=== PATIENT | female | born 1975 | race Caucasian/White ===

== ENCOUNTER → 2019-07-07 11:21 | Outpatient (REF) | payer OTHER, SELFPAY | LOC: ANHLAB 11:21 | PROVIDERS: PCP Physician Assistant; Visit Provider Nurse Practitioner | DX: C44.622 Squamous cell carcinoma of skin of right upper limb, including shoulder (principal) | CPT/HCPCS: 88305; 88331 ==

== ENCOUNTER 2020-08-27 09:11 | Outpatient (CLI) | payer OTHER, SELFPAY ==
--- NOTE | 2020-08-27 | EST_ITS ---
Patient Info Name: Afshan Hill Age: 45 years : 1975 Gender: Female Ht: 68 in Wt: 190 lbs BSA: 2.05 m2 HR: 84 bpm BP: 106 / 66 mmHg Heart Rhythm: Sinus Rhythm Exam Date: 08/27/2020 9:28 AM Exam Location: [facility] Patient Status: Outpatient Admit Date: 08/27/2020 Staff Ordering Physician: VanessaMeghna PA-C Store Keeper: Huong Mathews RDCS Attending Provider: CornelioMeghna PA-C Exercise Technologist: Alena Do RDCS Exercise Physician: Yash Mercedes DO Exam Type: CA stress echo Study Info Indications R07.9 - Chest pain, unspecified Treadmill exercise stress echocardiogram is performed. Summary 1. 1. Negative Trino exercise stress test for ischemic ST changes by ECG criteria. 2. 2. Good functional capacity, achieving 10 METs of workload. 3. 3. Appropriate HR response to exercise. 4. 4. Appropriate HR recovery at 1 minute post exercise. 5. 5. Negative stress echocardiogram for ischemia by wall motion analysis. 6. 6. Patient informed of the above results. Stress Echo Findings Left Ventricle Appropriate increase in LV endocardial thickening with systole. Appropriate augmentation of contractility with systole. No wall motion abnormality. Left Ventricle Normal LV systolic function, no wall motion abnormality. Protocol: Trino Stress ECG Details Stage: REST Duration (min): 2 min : 10 sec Speed (mph): 0.0 Grade (%): 0 HR (bpm): 89 SBP (mmHg): 106 DBP (mmHg): 66 METS: --- Stage: REST Duration (min): 23 min : 16 sec Speed (mph): 0.0 Grade (%): 0 HR (bpm): 73 SBP (mmHg): 106 DBP (mmHg): 66 METS: --- Stage: STAGE 1 Duration (min): 1 min : 0 sec Speed (mph): 1.7 Grade (%): 10 HR (bpm): 110 SBP (mmHg): 106 DBP (mmHg): 66 METS: --- Stage: STAGE 1 Duration (min): 2 min : 0 sec Speed (mph): 1.7 Grade (%): 10 HR (bpm): 117 SBP (mmHg): 106 DBP (mmHg): 66 METS: --- Stage: STAGE 1 Duration (min): 3 min : 0 sec Speed (mph): 1.7 Grade (%): 10 HR (bpm): 122 SBP (mmHg): 127 DBP (mmHg): 65 METS: --- Stage: STAGE 2 Duration (min): 1 min : 0 sec Speed (mph): 2.5 Grade (%): 12 HR (bpm): 128 SBP (mmHg): 127 DBP (mmHg): 65 METS: --- Stage: STAGE 2 Duration (min): 2 min : 0 sec Speed (mph): 2.5 Grade (%): 12 HR (bpm): 132 SBP (mmHg): 122 DBP (mmHg): 71 METS: --- Stage: STAGE 2 Duration (min): 3 min : 0 sec Speed (mph): 2.5 Grade (%): 12 HR (bpm): 140 SBP (mmHg): 122 DBP (mmHg): 71 METS: --- Stage: STAGE 3 Duration (min): 1 min : 0 sec Speed (mph): 3.4 Grade (%): 14 HR (bpm): 150 SBP (mmHg): 146 DBP (mmHg): 67 METS: --- Stage: STAGE 3 Duration (min): 2 min : 0 sec Speed (mph): 3.4 Grade (%): 14 HR (bpm): 154 SBP (mmHg): 146 DBP (mmHg): 67 METS: --- Stage: STAGE 3 Duration (min): 3 min : 0
== END 2020-08-27 09:12 | disposition home or self-care (01) ==
PROVIDERS: PCP Physician Assistant; Visit Provider Physician Assistant
DX: R07.89 Other chest pain (principal)
CPT/HCPCS: 93351

== ENCOUNTER 2021-03-25 09:22 | Outpatient (CLI) | payer OTHER, SELFPAY ==
--- NOTE | ~2021-03-25 | MM_ITS ---
EXAMINATION: MM screening jose BI w ade HISTORY: Screening mammogram TECHNIQUE: Craniocaudal and mediolateral oblique 3-D tomosynthesis images were obtained and synthetic 2-D images were generated. CAD analysis was submitted and interpreted. COMPARISON: No prior mammogram is available for comparison at this institution. BREAST PARENCHYMAL COMPOSITION: The breasts are extremely dense, which lowers the sensitivity of mamm ography. FINDINGS: There is no evidence of suspicious mass, calcification, or architectural distortion to sugg est malignancy in either breast. There has been no suspicious interval change. IMPRESSION: 1. No mammographic evidence of malignancy. 2. Recommend routine screening mammography in one year. BI-RADS Category 1: Negative Reviewed, dictated and finalized at location A.
== END 2021-03-25 09:23 | disposition home or self-care (01) ==
LOC: ANHIMG 09:25
PROVIDERS: PCP Physician Assistant; Visit Provider Obstetrics & Gynecology
DX: Z12.31 Encounter for screening mammogram for malignant neoplasm of breast (principal)
CPT/HCPCS: 77063; 77067

== ENCOUNTER 2021-12-01 00:51 | Day surgery (SDC) | payer OTHER, SELFPAY ==
[2021-11-25 15:22] VITALS: BMI 28.1
--- NOTE | 2021-11-29 12:51 | PM.HPGS ---
History of Present Illness History of Present Illness Consent: Risks, benefits, and alternatives have been discussed and questions answered. Patient agrees to proceed with procedure. Chief complaint: neoplasm screening Narrative: Afshan Hill is a 46 year old female referred for colon cancer screening. Review of Systems Review of Systems: All systems reviewed & are unremarkable except as noted in HPI and below PMFSH Past Medical History Medical History History of Mohs micrographic surgery for skin cancer SCC (squamous cell carcinoma) Seizure Surgical History Surgical History History of brain surgery History of hernia repair Family History Family History Father Lymphoma Other Family history of malignant neoplasm Social History Social History Smoking status: Never smoker Alcohol intake: never Substance use: never Substance use type: does not use Living arrangements: with family Spiritual care concerns: No Meds Home Medications and Allergies Home Medications Medication Instructions Recorded Confirmed Type Pre-Biotic Pro-Biotic 1 cap PO DAILY 11/25/21 11/25/21 History cholecalciferol (vitamin D3) 25 25 mcg PO DAILY 11/25/21 11/25/21 History mcg (1,000 unit) tablet (Vitamin D3) levocetirizine 5 mg tablet (Xyzal) 5 mg PO DAILY 11/25/21 11/25/21 History multivit with minerals-iron 18 1 tablet PO DAILY 11/25/21 11/25/21 History mg-folic ac 400 mcg-vit K 25 mcg tablet (Adults Multivitamin) Allergies Allergy/AdvReac Type Severity Reaction Status Date / Time No Known Allergies Allergy Verified 12/01/21 08:55 Exam Resp: Auscultation: clear to auscultation bilaterally Cardio: Rate: regular rate Rhythm: regular rhythm GI: GI Palp: Yes Soft to palpation and No Tenderness to palpation present (GI) Assessment and Plan Assessment and plan (1) Colon cancer screening: Code(s): Z12.11 - Encounter for screening for malignant neoplasm of colon Status: Acute Assessment and Plan: Colonoscopy with possible biopsy or polypectomy or cautery or injection of substances.
[2021-12-01 08:55] VITALS: BP 117/84; PULSE 83; RESP 18; TEMP 36.6; O2SAT 99
[2021-12-01] MEDS: LACTATED RINGERS 1,000 ML 150 ML IV CONT (08:59)
--- NOTE | 2021-12-01 09:24 | P.PNAN_ITS ---
Anes - Initial Pre Proc Eval Procedure: Operation Date: 12/01/21 10:00 Proposed Procedures p Screening Colonoscopy - Clint Choi MD Date/Time: 12/01/21 09:24 Surgeon: Clint Choi MD Pre Op Diagnosis: neoplasm screening Patient Data Age: 46 Gender: F Height: 1.73 m Weight: 79.7 kg Last Vital Signs Temp 36.6 C 12/01/21 08:55 Pulse 83 12/01/21 08:55 Resp 18 12/01/21 08:55 BP 117/84 12/01/21 08:55 Pulse Ox 99 12/01/21 08:55 O2 Del Method Room Air 12/01/21 08:55 Allergies Allergy/AdvReac Type Severity Reaction Status Date / Time No Known Allergies Allergy Verified 12/01/21 08:55 Home Medications Medication Instructions Recorded Confirmed Type Pre-Biotic Pro-Biotic 1 cap PO DAILY 11/25/21 11/25/21 History cholecalciferol (vitamin D3) 25 25 mcg PO DAILY 11/25/21 11/25/21 History mcg (1,000 unit) tablet (Vitamin D3) levocetirizine 5 mg tablet (Xyzal) 5 mg PO DAILY 11/25/21 11/25/21 History multivit with minerals-iron 18 1 tablet PO DAILY 11/25/21 11/25/21 History mg-folic ac 400 mcg-vit K 25 mcg tablet (Adults Multivitamin) Patient hx anesthesia problems: none Family hx anesthesia problems: none Results Review: All pre-operative results and documents have been reviewed as part of the pre- operative evaluation. [facility] Past Medical History Medical History History of Mohs micrographic surgery for skin cancer SCC (squamous cell carcinoma) Seizure Surgical History Surgical History History of brain surgery History of hernia repair Family History Family History Father Lymphoma Other Family history of malignant neoplasm Social History Social History Smoking status: Never smoker Alcohol intake: never Substance use: never Substance use type: does not use Living arrangements: with family Spiritual care concerns: No Anes - Eval Final PreProcedure Day of Procedure 12/01/21 09:24 Patient weight: overweight Heart: regular rate and rhythm Lungs: clear to auscultation Airway: Mallampati scale class II Neurological: alert and oriented Last oral intake: >/= 8 hours ASA classification: III Emergent: no Anesthetic plan: proceed Anesthesia type and monitoring: general GIVS and standard monitoring Results Review: All pre-operative results and documents have been reviewed as part of the pre- operative evaluation. Informed Consent: The patient's anesthetic plan and its attendant risks and benefits were discussed with the patient/family/POA. Questions were solicited and answers provided to the satisfaction of the patient/family/POA.
[2021-12-01 10:01] VITALS: BP 110/60; PULSE 79; RESP 16; O2SAT 98
[2021-12-01 10:11] VITALS: BP 94/55; PULSE 71; RESP 14; O2SAT 98
[2021-12-01 10:21] VITALS: BP 108/67; PULSE 68; RESP 17; O2SAT 97
== END 2021-12-01 10:41 | disposition home or self-care (01) ==
PROVIDERS: PCP Physician Assistant; Visit Provider Internal Medicine Gastroenterology
PROC: 0DJD8ZZ Inspection of Lower Intestinal Tract, Via Natural or Artificial Opening Endoscopic (ICD-10-PCS; CPT 45378; principal; 2021-12-01 10:00)
DX: Z12.11 Encounter for screening for malignant neoplasm of colon (principal); R56.9 Unspecified convulsions; Z85.828 Personal history of other malignant neoplasm of skin
CPT/HCPCS: 45378; J2704; J7120

== ENCOUNTER → 2022-03-04 10:38 | Outpatient (CLI) | payer OTHER, SELFPAY ==
--- NOTE | ~2022-03-04 | XR_ITS ---
EXAM: XR foot LT min 3V DATE: 03/04/2022 10:54 HISTORY: Unspecified injury of left foot, initial encounter . COMPARISON: None available. FINDINGS: Normal mineralization. No fracture or dislocation. No lytic or blastic lesion. Small os na vicularis. Linear calcific density projecting medial to the first metatarsal head, possibly within pl anurag soft tissues, seen only in one view. Tiny ossific or calcific density adjacent to the cuboid, s een only in one view. Os cuboidium. Joint spaces are maintained. No erosion or periosteal change. Sof t tissues within normal limits. IMPRESSION: No definite acute osseous finding in the left foot. Possible plantar soft tissue calcific ation or foreign body at the level of the first metatarsal head. Small calcific/ossific fragment vandana cent to the lateral aspect of the cuboid. These findings are most likely artifactual/incidental unles s accompanied by acute pain/point tenderness. Reviewed, dictated and finalized at location K. IMPRESSION: No definite acute osseous finding in the left foot. Possible planta r soft tissue calcification or foreign body at the level of the first metatarsa l head. Small calcific/ossific fragment adjacent to the lateral aspect of the c uboid. These findings are most likely artifactual/incidental unless accompanied by acute pain/point tenderness.
== END ==
PROVIDERS: PCP Physician Assistant; Visit Provider Physician Assistant
DX: S99.922A Unspecified injury of left foot, initial encounter (principal)
CPT/HCPCS: 73630

== ENCOUNTER 2022-03-24 12:34 | Emergency (ER) | payer OTHER, SELFPAY ==
--- NOTE | ~2022-03-24 | US_ITS ---
EXAMINATION: US pelvic complete w TV DATE: 03/24/2022 17:03 INDICATION: Vaginal bleeding. TECHNIQUE: Multiple transabdominal and transvaginal sonographic images of the pelvis were obtained. COMPARISON: CT abdomen and pelvis 03/24/1972 FINDINGS: TRANSABDOMINAL ULTRASOUND: The uterus measures 10.8 x 5.7 x 7.2 cm. There is physiologic free fluid in the pelvis. TRANSVAGINAL ULTRASOUND: The endometrial complex measures 15 mm in thickness. The endocervical canal measures 19 mm in thickne ss and contains material of mixed echogenicity that is contiguous with the endometrial complex. The r ight ovary measures 3.3 x 1.9 x 2.4 cm. The left ovary is not visualized. IMPRESSION: 1. Hematoma in the endometrial complex and endocervical canal. Reviewed, dictated and finalized at location A.
--- NOTE | ~2022-03-24 | CT_ITS ---
EXAMINATION: CT abdomen pelvis w con DATE: 03/24/2022 15:43 INDICATION: Lower abdominal pain TECHNIQUE: Computed tomography (CT) of the abdomen and pelvis was performed with 100 mL Omnipaque-350 intravenous contrast. Automated exposure control and iterative reconstruction technique were employe d. The dose-length product was 728.14 mGy-cm. COMPARISON: None FINDINGS: Lung bases are clear. Heart size is normal. No pericardial or pleural effusion. 1.1 cm cyst at the do me of the liver. Gallbladder is dilated to 4.3 cm both no evident wall thickening or pericholecystic inflammatory stranding. Spleen, pancreas, bilateral adrenal glands and kidneys are normal. Bowels inc luding the appendix are normal. Bladder and bilateral ovaries are unremarkable. Normal 4 mm thick hyp odense endometrial complex at the fundus of the retroverted uterus. There is dilation of the more dis elliott endocervical canal which measures approximately 2.6 cm in diameter. Small amount of likely physio logic free fluid in the cul-de-sac. No pathologically enlarged abdominal or pelvic lymphadenopathy. I rregular sclerotic lesions at the right sacral ala and right supra-acetabular region and right pubic body. IMPRESSION: 1. Prominent dilation of the endocervical canal which measures up to 2.6 cm diameter region of indete rminate etiology but which does raise concern for cervical stenosis including the setting of cervical cancer. Recommend further evaluation with pelvic exam for direct visualization and could also consid er pelvic ultrasound. 2. A few indeterminate sclerotic bone lesions in the pelvis. Differential would include bone islands, enchondromas, bone infarcts or metastatic disease. Prior imaging is available to document chronicity would recommend bone scan for further evaluation. Reviewed, dictated and finalized at location A. IMPRESSION: 1. Prominent dilation of the endocervical canal which measures up to 2.6 cm wood meter region of indeterminate etiology but which does raise concern for cervica l stenosis including the setting of cervical cancer. Recommend further evaluati on with pelvic exam for direct visualization and could also consider pelvic ult rasound. 2. A few indeterminate sclerotic bone lesions in the pelvis. Differential would include bone islands, enchondromas, bone infarcts or metastatic disease. Prior imaging is available to document chronicity would recommend bone scan for furt her evaluation.
[2022-03-24 12:35] VITALS: BP 115/63; PULSE 74; TEMP 36.9; O2SAT 100
[2022-03-24] MEDS: SODIUM CHLORIDE 0.9% IV 1,000 ML 999 ML IV CONT (13:28)
[2022-03-24] MEDS: MORPHINE SULFATE (*CRX) 4 MG/ML INJ IV PUSH (13:28)
[2022-03-24] MEDS: ONDANSETRON INJ 4 MG/2 ML VIAL IV PUSH (13:28)
--- NOTE | 2022-03-24 13:28 | ED.ABDPAIN ---
HPI - Abdominal Pain General Chief Complaint: Abdominal Pain Stated Complaint: uterine cramps Time Seen by Provider: 03/24/22 13:00 History of Present Illness HPI narrative: 46-year-old female who is presently on her menses presents to the emergency room for evaluation of uterine cramps. Patient states prior to Arrival she began experiencing severe abdominal cramps, so she took 3 aspirins. Pain was not relieved, so she took a 3 ibuprofen 6. On presentation to the ER patient states the pain has slightly improved. Patient reports she has been experiencing abnormal vaginal bleeding and cramping for several months, and her [employer] recently started her on oral control. Related Data Home Medications Medication Instructions Recorded Confirmed Pre-Biotic Pro-Biotic 1 cap PO DAILY 11/25/21 11/25/21 cholecalciferol (vitamin D3) 25 25 mcg PO DAILY 11/25/21 11/25/21 mcg (1,000 unit) tablet (Vitamin D3) levocetirizine 5 mg tablet (Xyzal) 5 mg PO DAILY 11/25/21 11/25/21 multivit with minerals-iron 18 1 tablet PO DAILY 11/25/21 11/25/21 mg-folic ac 400 mcg-vit K 25 mcg tablet (Adults Multivitamin) Allergies Allergy/AdvReac Type Severity Reaction Status Date / Time No Known Allergies Allergy Verified 03/24/22 13:27 Review of Systems Review of Systems: CONSTITUTIONAL: Denies fever, chills, or sweats. EYES: Denies visual changes, redness, or discharge. ENT: Denies rhinorrhea, congestion, sore throat, or otalgia. CARDIOVASCULAR: Denies chest pain, palpitations, or edema. RESPIRATORY: Denies cough or dyspnea. GASTROINTESTINAL: Reports lower abdominal pain GENITOURINARY: Denies dysuria or hematuria. SKIN: Denies rash or itching. MUSCULOSKELETAL: Denies back pain, joint pain, or myalgia. NEUROLOGIC: Denies headache, numbness, dizziness, or weakness. PSYCHIATRIC: Denies anxiety or depression. [facility] Past Medical History Medical History History of Mohs micrographic surgery for skin cancer SCC (squamous cell carcinoma) Seizure Surgical History Surgical History History of brain surgery History of hernia repair Family History Family History Father Lymphoma Other Family history of malignant neoplasm Social History Social History Smoking status: Never smoker Alcohol intake: never Substance use: never Substance use type: does not use Spiritual care concerns: No Exam Narrative: GENERAL: Well-appearing, well-nourished, no physical limitations, and in acute distress. HEAD: Normocephalic, atraumatic. EYES: Conjunctivae normal, PERRLA and EOMI. CHEST: Clear to auscultation. No respiratory distress. No wheezes rales or rhonchi. HEART: Regular rate and rhythm. No murmur heard. Normal peripheral pulses. ABDOMEN: Soft, lower abdominal tenderness, nondistended, normal active bowel sounds. BACK: No CVA tenderness; No cervical/thoracic/lumbar tenderness, step-offs, bony abnormality; FROM EXTREMITIES: Normal range of motion. No edema. No clubbing or cyanosis SKIN: Warm, dry, no rash. No noted wounds NEURO: No focal deficits. Alert and oriented x3. MAEW. CN's II-XI intact bilaterally, normal gait PSYCH: Cooperative. Normal mood and affect. Course Vital Signs Vital signs: Vital Signs Temperature 36.9 C 03/24/22 12:35 Pulse Rate 74 03/24/22 12:35 Blood Pressure 115/63 03/24/22 12:35 Pulse Oximetry 100 03/24/22 12:35 Oxygen Delivery Room Air 03/24/22 12:35 Temperature 36.9 C 03/24/22 12:35 Pulse Rate 74 03/24/22 12:35 Blood Pressure 99/58 L 03/24/22 14:15 Pulse Oximetry 100 03/24/22 14:15 Oxygen Delivery Room Air 03/24/22 12:35 MDM - Abdominal Pain MDM Narrative Medical decision making narrative: 1730:'s findings and results with Dr. Knight
[2022-03-24 13:30] LABS: Basophils Percent Auto 0.3 % (0.2-1.2); Eosinophils Absolute Auto 0.1 K/mm3 (0-0.3); Eosinophils Percent Auto 0.5 % (0-4.4); Hematocrit 37.5 % (37.0-47.0); Immature Granulocyte Absolute 0.03 K/mm3 (0.00-0.031); Immature Granulocyte Percent A 0.3 % (0-0.5); Lymphocytes Absolute Auto 0.87 K/mm3 (0.9-3.2); Mean Corpuscular HGB Conc 34.7 g/dl (32-36); Mean Corpuscular Hemoglobin 31.3 pg (26-34); Mean Corpuscular Volume 90.1 fl (80-100); Mean Platelet Volume 10.6 fl (7.4-10.4); Monocytes Absolute Auto 0.5 K/mm3 (0.1-0.6); Monocytes Percent Auto 4.2 % (2.6-8.5); Neutrophils Absolute Auto 9.4 K/mm3 (1.3-6.7); Neutrophils Percent Auto 86.7 % (45.5-73.1); Platelet Count Result 245 k/mm3 (150-375); Red Blood Count 4.16 M/mm3 (4.2-5.4); Red Cell Distribution Width 12.6 % (11.5-14.5); White Blood Count 10.9 K/mm3 (4.5-10.0)
[2022-03-24 13:41] LABS: Alanine Aminotransferase 15 U/L (6-35); Albumin Level 4.4 g/dL (3.5-5.1); Alkaline Phosphatase 60 U/L (38-126); Anion Gap 16 mmol/L (8-16); Aspartate Amino Transferase 22 U/L (14-36); Bilirubin,Total 0.5 mg/dL (0.2-1.3); Blood Urea Nitrogen 10 mg/dL (7-17); Calcium 9.1 mg/dL (8.4-10.2); Carbon Dioxide 20 mmol/L (22-30); Chloride 99 mmol/L (98-107); Estimated CRCL calculation 87 ml/min; Estimated Glomerular Filt Rate > 60; Glucose 130 mg/dL (65-110); Lipase 102 U/L (23-300); Potassium 3.6 mmol/L (3.4-5.0); Sodium 135 mmol/L (137-145)
[2022-03-24 14:06] VITALS: BP 107/59; O2SAT 99
[2022-03-24 14:15] VITALS: BP 99/58; O2SAT 100
[2022-03-24 14:28] LABS: Add Urine Microscopic? YES; Appearance Urine Cloudy (Clear); Bacteria Urine Trace /hpf; Bilirubin Urine Negative (Negative); Blood Urine 3+ (Negative); Color Urine Amber (Yellow); Glucose Urine UA Negative (Negative); Ketones Urine 1+ mg/dL (Negative); Leukocyte Esterase Ur 2+ LEU/UL (Negative); Mucus Urine Rare /lpf; Nitrate Urine Negative (Negative); Protein Urine 2+ mg/dL (Negative); RBC Urine >75 /hpf (0-2); Specific Grav Ur 1.027 (1.001-1.035); Squamous Epithelial Cell Urine Many /hpf (Few); Urobilinogen Urine Negative mg/dL (<2.0); WBC Urine >75 /hpf
--- NOTE | 2022-03-24 15:17 | PC.NURSE ---
Pt in CT scan
[2022-03-24 17:29] VITALS: BP 114/56; O2SAT 99
[2022-03-24 17:44] VITALS: BP 111/65; O2SAT 100
== END 2022-03-24 17:50 | disposition home or self-care (01) ==
PROVIDERS: Emergency Provider Nurse Practitioner Family; PCP Physician Assistant
DX: R10.9 Unspecified abdominal pain (principal)
CPT/HCPCS: 36415; 74177; 76830; 76856; 80053; 81001; 83690; 85025; 87086; 96361; 96374; 96375; 99284; J2270; J2405; J7030; Q9967

== ENCOUNTER 2022-05-23 09:56 | Day surgery (SDC) | payer OTHER, SELFPAY ==
[2022-05-18 08:16] VITALS: BMI 28.9
[2022-05-18 09:06] VITALS: BMI 28.0
[2022-05-23] MEDS: ACETAMINOPHEN 500 MG TABLET 1000 MG PO (10:30)
--- NOTE | 2022-05-23 11:11 | PM.IMHP ---
H&P: HPI History of Present Illness Date/Time: 05/23/22 11:11 Chief Complaint: Bleeding Narrative: 46 y/o with cramping, bleeding, and an abnormal pelvic ultrasound. Office hysteroscopy showed an endometrial mass. Review of Systems Review of Systems: All systems reviewed & are unremarkable except as noted in HPI and below PMFSH Past Medical History Medical History History of Mohs micrographic surgery for skin cancer SCC (squamous cell carcinoma) Seizure Surgical History Surgical History History of brain surgery History of delivery History of hernia repair Family History Family History Father Lymphoma Other Family history of malignant neoplasm Social History Social History Smoking status: Never smoker Alcohol intake: never Substance use: never Substance use type: does not use Living arrangements: with family Spiritual care concerns: No Meds Home Medications and Allergies Home Medications Medication Instructions Recorded Confirmed Type Pre-Biotic Pro-Biotic 1 cap PO DAILY 11/25/21 05/23/22 History cholecalciferol (vitamin D3) 25 25 mcg PO DAILY 11/25/21 05/23/22 History mcg (1,000 unit) tablet (Vitamin D3) levocetirizine 5 mg tablet (Xyzal) 5 mg PO DAILY 11/25/21 05/23/22 History multivit with minerals-iron 18 1 tablet PO DAILY 11/25/21 05/23/22 History mg-folic ac 400 mcg-vit K 25 mcg tablet (Adults Multivitamin) sertraline 25 mg tablet 25 mg PO DAILY 05/18/22 05/23/22 History Allergies Allergy/AdvReac Type Severity Reaction Status Date / Time No Known Allergies Allergy Verified 05/23/22 10:29 Exam Const: Orientation/consciousness: patient oriented x3 Other: Well-developed, well-nourished female in no acute distress. Neck: Thyroid: thyroid normal Lymphatic: no lymphadenopathy noted (in neck, axilla or inguinal nodes) Resp: Effort & Inspection: normal respiratory effort Auscultation: clear to auscultation bilaterally Cardio: Rate: regular rate Rhythm: regular rhythm Heart sounds: S1 normal heart sound present and S2 normal heart sound present GI: Other: ABD: Soft, nontender, nondistended. No guarding or rebound tenderness. No hepatosplenomegaly. : General: Yes no CVA tenderness Other: External genitalia: normal female hair distribution, without lesion. Urethral meatus: no lesion, non prolapsed. Bladder: no mass, nontender Vagina: well-estrogenized, without lesion or discharge. No cystocele or rectocele. Cervix: no lesion or discharge. Uterus: small, anteverted, freely mobile, nontender Adnexa: no mass or tenderness. Anus/perineum: no lesions, nontender Back/Spine/Pelvis: Back: no CVA tenderness Skin: General skin exam: normal color and no rashes or lesions noted Neuro: General: patient oriented x3 Extrem: Other: Extremities: nontender with no edema Psych: Mental Status: mental status grossly normal Affect: normal affect Assessment and Plan Assessment and plan (1) Menometrorrhagia: Code(s): N92.1 - Excessive and frequent menstruation with irregular cycle Status: Acute Assessment and Plan: A: Menometrorrhagia with endometrial mass. P: Offered hysteroscopy with dilation and sharp curettage. She understands risks of surgery to include risks of anesthesia, risks of pain, infection, bleeding, blood products, thromboembolic phenomena and damage to adjacent structures such as bowel, bladder, ureters, blood vessels and nerves. She understands all these risks and elects to proceed with surgery. (2) Endometrial mass: Code(s): N94.89 - Other specified conditions associated with female genital organs and menstrual cycle Status: Acute
--- NOTE | 2022-05-23 11:18 | WPDANESEPPF ---
Anes - Initial Pre Proc Eval Procedure: Operation Date: 05/23/22 11:30 Proposed Procedures p Hysteroscopy, Dilation and Curettage w/Polypectomy - Brian Pino MD Date/Time: 05/23/22 11:18 Surgeon: Brian Pino MD Pre Op Diagnosis: Uterine Polyp, Irregular Vaginal Bleeding Patient Data Age: 46 Gender: F Height: 1.73 m Weight: 86 kg Allergies Allergy/AdvReac Type Severity Reaction Status Date / Time No Known Allergies Allergy Verified 05/23/22 10:29 Home Medications Medication Instructions Recorded Confirmed Type Pre-Biotic Pro-Biotic 1 cap PO DAILY 11/25/21 05/23/22 History cholecalciferol (vitamin D3) 25 25 mcg PO DAILY 11/25/21 05/23/22 History mcg (1,000 unit) tablet (Vitamin D3) levocetirizine 5 mg tablet (Xyzal) 5 mg PO DAILY 11/25/21 05/23/22 History multivit with minerals-iron 18 1 tablet PO DAILY 11/25/21 05/23/22 History mg-folic ac 400 mcg-vit K 25 mcg tablet (Adults Multivitamin) sertraline 25 mg tablet 25 mg PO DAILY 05/18/22 05/23/22 History Patient hx anesthesia problems: none Family hx anesthesia problems: none Results Review: All pre-operative results and documents have been reviewed as part of the pre-operative evaluation. [facility] Past Medical History Medical History History of Mohs micrographic surgery for skin cancer SCC (squamous cell carcinoma) Seizure Surgical History Surgical History History of brain surgery History of delivery History of hernia repair Family History Family History Father Lymphoma Other Family history of malignant neoplasm Social History Social History Smoking status: Never smoker Alcohol intake: never Substance use: never Substance use type: does not use Living arrangements: with family Spiritual care concerns: No Anes - Eval Final PreProcedure Day of Procedure 05/23/22 11:18 Patient weight: overweight Heart: regular rate and rhythm Lungs: clear to auscultation Airway: Mallampati scale class II Neurological: alert and oriented Last oral intake: >/= 8 hours ASA classification: II Emergent: no Anesthetic plan: proceed Anesthesia type and monitoring: general GIVS and standard monitoring Results Review: All pre-operative results and documents have been reviewed as part of the pre-operative evaluation. Informed Consent: The patient's anesthetic plan and its attendant risks and benefits were discussed with the patient/family/POA. Questions were solicited and answers provided to the satisfaction of the patient/family/POA.
[2022-05-23 11:24] VITALS: BP 116/87; PULSE 84; RESP 20; TEMP 36.6; O2SAT 98
[2022-05-23] MEDS: LACTATED RINGERS 1,000 ML 30 ML IV CONT (11:25)
--- NOTE | 2022-05-23 11:38 | WPDHPUPDATE1 ---
History and Physical Update Update Date/Time: 05/23/22 11:38 History and Physical has been reviewed, including an updated exam of the patient. There are NO changes in the patient's condition. Risks, benefits, and alternatives have been discussed and questions answered. Patient agrees to proceed with procedure.
[2022-05-23] MEDS: LIDOCAINE HCL 1% LOCAL INJ 20 ML VIAL 10 ML INFILTRATE (12:11)
[2022-05-23 12:14] VITALS: BP 105/64; PULSE 70; RESP 12; O2SAT 94
--- NOTE | 2022-05-23 12:19 | W.PM.PROC2 ---
Procedure Note - Detailed Date of Procedure 05/23/22 Pre-op Diagnosis Menometrorrhagia Post-op Diagnosis Same Procedure Performed Hysteroscopy Dilation and sharp curettage Endometrial polypectomy Surgeon Brian Pino MD Anesthesia MAC and Local (1% lidocaine paracervical block) Findings Retroverted uterus. Thickened endometrium suspicious for endometrial polyp. Both tubal ostia seen. Description of Procedure The patient was taken to the operating room where she was prepared and draped in the usual sterile fashion in the dorsal lithotomy position. The bladder was drained with a red rubber catheter. A sterile speculum was placed into the vagina. The anterior lip of the cervix was grasped with single-tooth tenaculum. Ten mL of 1% lidocaine was administered in a paracervical block. The cervix was then gently dilated using Hegar dilators until an 8 mm dilator could be passed. Hysteroscopy was performed using sterile saline as a distention medium. Findings are as noted above. Sharp curettage was then performed, and endometrial curettings were collected on a Telfa pad and passed off to be sent to pathology. Hemostasis was excellent. Sponge, lap, needle and instrument counts were correct. The patient was awakened and taken to the recovery room in stable condition. I was present and scrubbed through the entire procedure. Implants None Estimated Blood Loss 5 Drains No Packing No Pathology Yes (Endometrial curettings) Complications None Condition Stable Disposition PACU
--- NOTE | 2022-05-23 12:32 | SUR.PHASEII ---
PT WAKING UP, DENIES PAIN OR NAUSEA. DRINKING WATER.
--- NOTE | 2022-05-23 12:34 | WPDANESPN ---
Anes - Prog Note Post-Op Date/Time: 05/23/22 12:34 Cardiovascular status: normal Respiratory status: normal Airway patency: baseline Mental status: baseline Post-Op hydration status: normal Vital Signs: Last Vital Signs Temp 36.6 C 05/23/22 11:24 Pulse 70 05/23/22 12:14 Resp 12 05/23/22 12:14 BP 105/64 05/23/22 12:14 Pulse Ox 94 05/23/22 12:14 O2 Del Method Room Air 05/23/22 12:14 Pain Score (VAS): 0/10 I/O: Intake & Output 05/22/22 05/23/22 05/23/22 23:59 07:59 15:59 Intake Total 0 Output Total 10 Balance -10 Patient Feedback: Patient satisfied with anesthetic care.
[2022-05-23 12:38] VITALS: BP 100/61; PULSE 90; RESP 14; O2SAT 98
[2022-05-23 13:00] VITALS: BP 97/60; PULSE 84; RESP 16
== END 2022-05-23 13:06 | disposition home or self-care (01) ==
PROVIDERS: PCP Physician Assistant; Visit Provider Obstetrics & Gynecology
PROC: 0U5B8ZZ Destruction of Endometrium, Via Natural or Artificial Opening Endoscopic (ICD-10-PCS; CPT 58563; principal; 2022-05-23 11:30)
DX: N92.1 Excessive and frequent menstruation with irregular cycle (principal)
CPT/HCPCS: 58558

== ENCOUNTER 2022-05-23 19:58 | Outpatient (NON) | payer OTHER, SELFPAY | END 2022-05-23 19:59 | disposition home or self-care (01) | PROVIDERS: PCP Physician Assistant; Visit Provider Obstetrics & Gynecology | DX: N92.1 Excessive and frequent menstruation with irregular cycle (principal); N84.0 Polyp of corpus uteri | CPT/HCPCS: 88305 ==

== ENCOUNTER 2022-06-07 15:07 | Outpatient (CLI) | payer OTHER, SELFPAY ==
--- NOTE | ~2022-06-07 | MM_ITS ---
EXAMINATION: MM screening [facility] BI w ade HISTORY: Screening mammogram TECHNIQUE: Craniocaudal and mediolateral oblique 3-D tomosynthesis images were obtained and synthetic 2-D images were generated. CAD analysis was submitted and interpreted. COMPARISON: 03/25/2021 BREAST PARENCHYMAL COMPOSITION: The breasts are extremely dense, which lowers the sensitivity of mamm ography. FINDINGS: No suspicious mass, calcification, or architectural distortion are identified in either kenyon ast to suggest malignancy. There has been no suspicious interval change. IMPRESSION: 1. No mammographic evidence of malignancy. 2. Recommend routine screening mammography in one year. BI-RADS Category 1: Negative Reviewed, dictated and finalized at location [facility]. [facility]
== END 2022-06-07 15:08 | disposition home or self-care (01) ==
LOC: ANHIMG 15:10
PROVIDERS: PCP Physician Assistant; Visit Provider Obstetrics & Gynecology
DX: Z12.31 Encounter for screening mammogram for malignant neoplasm of breast (principal)
CPT/HCPCS: 77063; 77067

== ENCOUNTER 2022-10-26 09:58 | Day surgery (SDC) | payer OTHER, SELFPAY ==
[2022-10-26] VITALS (8 sets, daily range): BP systolic 100–111; BP diastolic 61–86; PULSE 60–91; RESP 12–16; TEMP 36.2–36.6; O2SAT 96–100; BMI 28.8
--- NOTE | 2022-10-26 10:45 | PC.NURSE ---
Report to the Outpatient Waiting Room, entrance under the green pavilion located off [facility], at time 1200 on date 10/26/22. Planned Procedure Time: 1400. Time changes happen often and if your time is changed the preop area will call you the afternoon before. - You and your visitor will be asked to self-screen and do not enter if you have any COVID symptoms. - A mask is optional within the hospital at this time. Patients may have clear liquids (water, carbonated beverages, clear teas, apple juice) until 3 hours prior to surgery (1100) with a maximum of 20 ounces. - No food from midnight until time of surgery Take the following medications with a SIP of water the morning of surgery: NONE DO NOT STOP ANY OF YOUR OTHER PRESCRIPTION MEDICATIONS PRIOR TO SURGERY?EXCEPT THE FOLLOWING Medications to discontinue per physician: N/A - SURGERY TODAY Date to take last dose: N/A Please no make-up, nail maldivian, hairspray, perfume, deodorant, or body powder the day of surgery. No jewelry (including any body piercings) or valuables the day of surgery, leave them at home. Please take a shower or bath the night before, or the morning of, surgery with an antibacterial soap. Wear comfortable, loose fitting clothing. - Jewelry must be removed prior to entering the operating room. Rings and piercings that are not removed may be cut off. - The hospital will not accept responsibility for valuables. - Please leave all valuables, including medications, at home the day of surgery. If you are going home after surgery, a licensed driver guard must drive you home. - NO public transportation without another adult if you receive anesthesia. - We recommend that an adult stay with you for 24 hours following discharge. - We also recommend that you do not drive, make important decision, drink alcoholic beverages, or take any drugs that were not prescribed by your health care provider for at least 24 hours after your discharge time. Follow any additional instructions given to you from your surgeon. If you or anyone in your household have experienced Covid symptoms in the past week, please notify your surgeon or the nurse liaison at the phone number below for possible testing. Telephone instructions given to PT - YUAN RUFFIN and asked if any additional questions and then verbalized understanding. Patient advised to call surgeon office or pre surgery nurse liaison [phone] if any additional questions.
--- NOTE | 2022-10-26 12:21 | PM.IMHP ---
H&P: HPI History of Present Illness Date/Time: 10/26/22 12:21 Chief Complaint: Bleeding Narrative: 47 y/o with likely chronic anovulation, now with a heavy episode of vaginal bleeding that has not responded well to medical management. Review of Systems Review of Systems: All systems reviewed & are unremarkable except as noted in HPI and below PMFSH Past Medical History Medical History History of Mohs micrographic surgery for skin cancer SCC (squamous cell carcinoma) Seizure Surgical History Surgical History History of brain surgery History of delivery History of hernia repair Family History Family History Father Lymphoma Other Family history of malignant neoplasm Social History Social History Smoking status: Former smoker Alcohol intake: current Drinks per week: 3 Substance use: never Substance use type: does not use Living arrangements: with family Spiritual care concerns: No Meds Home Medications and Allergies Home Medications Medication Instructions Recorded Confirmed Type cholecalciferol (vitamin D3) 25 25 mcg PO DAILY 11/25/21 10/26/22 History mcg (1,000 unit) tablet (Vitamin D3) levocetirizine 5 mg tablet (Xyzal) 5 mg PO DAILY 11/25/21 10/26/22 History multivit with minerals-iron 18 1 tablet PO DAILY 11/25/21 10/26/22 History mg-folic ac 400 mcg-vit K 25 mcg tablet (Adults Multivitamin) sertraline 25 mg tablet 25 mg PO HS 05/18/22 10/26/22 History ferrous sulfate 325 mg (65 mg 325 mg PO DAILY 10/26/22 10/26/22 History iron) tablet (Iron (ferrous sulfate)) tranexamic acid 650 mg tablet 2,600 mg PO HS 10/26/22 10/26/22 History Allergies Allergy/AdvReac Type Severity Reaction Status Date / Time No Known Allergies Allergy Verified 10/26/22 10:36 Exam Const: Orientation/consciousness: patient oriented x3 Other: Well-developed, well-nourished female in no acute distress. Neck: Thyroid: thyroid normal Lymphatic: no lymphadenopathy noted (in neck, axilla or inguinal nodes) Resp: Effort & Inspection: normal respiratory effort Auscultation: clear to auscultation bilaterally Cardio: Rate: regular rate Rhythm: regular rhythm Heart sounds: S1 normal heart sound present and S2 normal heart sound present GI: Other: ABD: Soft, nontender, nondistended. No guarding or rebound tenderness. No hepatosplenomegaly. : General: Yes no CVA tenderness Other: External genitalia: normal female hair distribution, without lesion. Urethral meatus: no lesion, non prolapsed. Bladder: no mass, nontender Vagina: well-estrogenized, without lesion or discharge. No cystocele or rectocele. Blood noted. Cervix: no lesion or discharge. Uterus: small, anteverted, freely mobile, nontender Adnexa: no mass or tenderness. Anus/perineum: no lesions, nontender Back/Spine/Pelvis: Back: no CVA tenderness Skin: General skin exam: normal color and no rashes or lesions noted Neuro: General: patient oriented x3 Extrem: Other: Extremities: nontender with no edema Psych: Mental Status: mental status grossly normal Affect: normal affect Assessment and Plan Assessment and plan (1) Vaginal bleeding: Code(s): N93.9 - Abnormal uterine and vaginal bleeding, unspecified Status: Acute Assessment and Plan: A: Heavy episode of vaginal bleeding, recalcitrant to medical management. P: Offered hysteroscopy with dilation and sharp curettage. She also desires an endometrial ablation in an effort to avoid these episodes in the future. She understands risks of surgery to include risks of anesthesia, risks of pain, infection, bleeding, blood products, thromboembolic phenomena and damage to adjacent structures suc
[2022-10-26] MEDS: ACETAMINOPHEN 500 MG TABLET 1000 MG PO (13:09)
--- NOTE | 2022-10-26 13:16 | WPDANESEPPF ---
Anes - Initial Pre Proc Eval Procedure: Operation Date: 10/26/22 14:00 Proposed Procedures p Hysteroscopy, Dilation and Curettage, Niesha Endometrial Ablation - Brian Pino MD Date/Time: 10/26/22 13:16 Surgeon: Brian Pino MD Pre Op Diagnosis: excessive bleeding Patient Data Age: 47 Gender: F Height: 1.73 m Weight: 88.6 kg Last Vital Signs Temp 97.8 F 10/26/22 12:57 Pulse 91 10/26/22 12:57 Resp 14 10/26/22 12:57 BP 104/66 10/26/22 12:57 Pulse Ox 100 10/26/22 12:57 O2 Del Method Room Air 10/26/22 12:57 Allergies Allergy/AdvReac Type Severity Reaction Status Date / Time No Known Allergies Allergy Verified 10/26/22 13:09 Home Medications Medication Instructions Recorded Confirmed Type cholecalciferol (vitamin D3) 25 25 mcg PO DAILY 11/25/21 10/26/22 History mcg (1,000 unit) tablet (Vitamin D3) levocetirizine 5 mg tablet (Xyzal) 5 mg PO DAILY 11/25/21 10/26/22 History multivit with minerals-iron 18 1 tablet PO DAILY 11/25/21 10/26/22 History mg-folic ac 400 mcg-vit K 25 mcg tablet (Adults Multivitamin) sertraline 25 mg tablet 25 mg PO HS 05/18/22 10/26/22 History ferrous sulfate 325 mg (65 mg 325 mg PO DAILY 10/26/22 10/26/22 History iron) tablet (Iron (ferrous sulfate)) tranexamic acid 650 mg tablet 2,600 mg PO HS 10/26/22 10/26/22 History Patient hx anesthesia problems: none Family hx anesthesia problems: none Results Review: All pre-operative results and documents have been reviewed as part of the pre-operative evaluation. FOR[facility]LY [facility] Past Medical History Medical History History of Mohs micrographic surgery for skin cancer SCC (squamous cell carcinoma) Seizure Surgical History Surgical History History of brain surgery History of delivery History of hernia repair Family History Family History Father Lymphoma Other Family history of malignant neoplasm Social History Social History Smoking status: Former smoker Alcohol intake: current Drinks per week: 3 Substance use: never Substance use type: does not use Living arrangements: with family Spiritual care concerns: No Anes - Eval Final PreProcedure Day of Procedure 10/26/22 13:16 Patient weight: normal Heart: regular rate and rhythm Lungs: clear to auscultation Airway: Mallampati scale class II Neurological: alert and oriented Last oral intake: >/= 8 hours ASA classification: II Emergent: no Anesthetic plan: proceed Anesthesia type and monitoring: general GIVS and standard monitoring Results Review: All pre-operative results and documents have been reviewed as part of the pre-operative evaluation. Informed Consent: The patient's anesthetic plan and its attendant risks and benefits were discussed with the patient/family/POA. Questions were solicited and answers provided to the satisfaction of the patient/family/POA.
--- NOTE | 2022-10-26 13:31 | WPDHPUPDATE1 ---
History and Physical Update Update Date/Time: 10/26/22 13:31 History and Physical has been reviewed, including an updated exam of the patient. There are NO changes in the patient's condition. Risks, benefits, and alternatives have been discussed and questions answered. Patient agrees to proceed with procedure.
[2022-10-26] MEDS: LIDOCAINE HCL 1% LOCAL INJ 20 ML VIAL 10 ML INFILTRATE (14:08)
--- NOTE | 2022-10-26 14:27 | W.PM.PROC2 ---
Procedure Note - Detailed Date of Procedure 10/26/22 Pre-op Diagnosis heavy vaginal bleeding Post-op Diagnosis Same Procedure Performed Hysteroscopy Dilation and sharp curettage Endometrial ablation Surgeon Brian Pino MD Anesthesia MAC and Local (1% lidocaine) Findings Normal-appearing endometrial cavity. Both tubal ostia seen. Description of Procedure The patient was taken to the operating room where she was prepared and draped in the usual sterile fashion in the dorsal lithotomy position. The bladder was drained with a red rubber catheter. A sterile speculum was placed into the vagina. The anterior lip of the cervix was grasped with single-tooth tenaculum. Ten mL of 1% lidocaine was administered in a paracervical block. The cervix was then gently dilated using Hegar dilators until an 8 mm dilator could be passed. Hysteroscopy was performed using sterile saline as a distention medium. Findings are as noted above. Sharp curettage was then performed, and endometrial curettings were collected on a Telfa pad and passed off to be sent to pathology. Finally, the the Niesha device was advanced and endometrial ablation commenced without difficulty. The device was withdrawn and a second look was taken using the hysteroscope. Excellent coverage of the endometrial cavity was noted. The tenaculum was removed. Hemostasis was excellent. Sponge, lap, needle and instrument counts were correct. The patient was awakened and taken to the recovery room in stable condition. I was present and scrubbed through the entire procedure. Estimated Blood Loss 5 Drains No Packing No Pathology Yes (Endometrial curettings) Complications None Condition Stable Disposition PACU
[2022-10-26] MEDS: LACTATED RINGERS 1,000 ML 30 ML IV CONT (14:31)
[2022-10-26] MEDS: fentaNYL CITRATE INJ (*CRX) 100 MCG/2 ML VIAL 25 MCG IV PUSH (14:56)
[2022-10-26] MEDS: oxyCODONE HCL (*CRX) 5 MG TAB IR PO (16:06)
== END 2022-10-26 15:37 | disposition home or self-care (01) ==
PROVIDERS: PCP Physician Assistant; Visit Provider Obstetrics & Gynecology
PROC: 0U5B8ZZ Destruction of Endometrium, Via Natural or Artificial Opening Endoscopic (ICD-10-PCS; CPT 58563; principal; 2022-10-26 14:00)
DX: N93.8 Other specified abnormal uterine and vaginal bleeding (principal); Z87.891 Personal history of nicotine dependence
CPT/HCPCS: 58563; 88305; A9270; J1100; J2250; J2405; J2704; J3010; J7120

== ENCOUNTER 2023-08-20 09:08 | Outpatient (CLI) | payer OTHER, SELFPAY ==
--- NOTE | ~2023-08-20 | MM_ITS ---
EXAMINATION: MM screening [facility] BI w ade HISTORY: Screening TECHNIQUE: Craniocaudal and mediolateral oblique 3-D tomosynthesis images were obtained and synthetic 2-D images were generated. CAD analysis was submitted and interpreted. COMPARISON: Comparison to multiple prior studies sequentially, with oldest reviewed study dated 03/05. BREAST PARENCHYMAL COMPOSITION: Dense: The breasts are extremely dense, which lowers the sensitivity of mammography. FINDINGS: There is no evidence of suspicious mass, calcification, or architectural distortion to sugg est malignancy in either breast. There has been no suspicious interval change. IMPRESSION: 1. No mammographic evidence of malignancy. 2. Recommend routine screening mammography in one year. BI-RADS Category 1: Negative Reviewed, dictated and finalized at location A.
== END 2023-08-20 09:09 | disposition home or self-care (01) ==
LOC: ANHIMG 09:10
PROVIDERS: PCP Physician Assistant; Visit Provider Obstetrics & Gynecology
DX: Z12.31 Encounter for screening mammogram for malignant neoplasm of breast (principal)
CPT/HCPCS: 77063; 77067

== ENCOUNTER 2024-08-10 15:17 | Emergency (ER) | payer OTHER, SELFPAY ==
[2024-08-10 15:34] VITALS: BP 116/67; PULSE 80; RESP 16; TEMP 36.9; O2SAT 100
--- NOTE | 2024-08-10 15:53 | ED_ITS ---
HPI - General Adult General Chief complaint: Ear Stated complaint: muffle ear Time Seen by Provider: 08/10/24 15:53 Source: patient Mode of arrival: ambulatory Limitations: no limitations History of Present Illness HPI narrative: 49-year-old female patient presents to the [facility] with complaints of muffleness to the left ear since yesterday. Denies fevers, body aches and chills. C/o intermittent dizness but not severe. Related Data Home Medications ?Medication ?Instructions ?Recorded ?Confirmed ?Last Taken ?Type cholecalciferol (vitamin D3) 25 25 mcg PO DAILY 11/25/21 10/26/22 3 Days Ago History mcg (1,000 unit) tablet (Vitamin ~05/20/22 D3) levocetirizine 5 mg tablet (Xyzal) 5 mg PO DAILY 11/25/21 10/26/22 1 Day Ago Hi story ~05/22/22 multivit with minerals-iron 18 1 tablet PO DAILY 11/25/21 10/26/22 3 Days Ago History mg-folic ac 400 mcg-vit K 25 mcg ~05/20/22 tablet (Adults Multivitamin) sertraline 25 mg tablet 25 mg PO HS 05/18/22 10/26/22 1 Day Ago History ~05/22/22 ferrous sulfate 325 mg (65 mg 325 mg PO DAILY 10/26/22 10/26/22 Unknown History iron) tablet (Iron (ferrous sulfate)) Allergies Allergy/AdvReac Type Severity Reaction Status Date / Time No Known Allergies Allergy Verified 10/26/22 13:09 Review of Systems Review of Systems: CONSTITUTIONAL: Denies fever, chills, or sweats. EYES: Denies visual changes, redness, or discharge. ENT: Denies rhinorrhea, congestion, sore throat, denies otalgia. CARDIOVASCULAR: Denies chest pain, palpitations, or edema. RESPIRATORY: Denies cough or dyspnea. GASTROINTESTINAL: Denies abdominal pain, nausea, vomiting, or diarrhea. GENITOURINARY: Denies dysuria or hematuria. SKIN: Denies rash or itching. MUSCULOSKELETAL: Denies back pain, joint pain, or myalgia. NEUROLOGIC: Denies headache, numbness, or weakness. PSYCHIATRIC: Denies anxiety or depression. FORMERLY [facility] Past Medical History Medical History Seizure SCC (squamous cell carcinoma) History of Mohs micrographic surgery for skin cancer Surgical History Surgical History History of delivery History of hernia repair History of brain surgery Family History Family History Father Lymphoma Other Family history of malignant neoplasm Social History Social History Smoking status: Former smoker Alcohol intake: current Drinks per week: 3 Substance use: never Substance use type: does not use Living arrangements: with family Spiritual care concerns: No Comments At the time of my signature I agree with nursing past medical history, surgical, social, and family history. There is no relevant family history pertinent to the presenting complaint. Exam Narrative: GENERAL: Well-appearing, well-nourished, and in no acute distress. HEAD: Normocephalic, atraumatic. EYES: PERRLA and EOMI. ENT: Nares clear, no rhinorrhea or epistaxis. Mucous membranes moist. NECK: Supple. No lymphadenopathy CHEST: Clear to auscultation. No respiratory distress. HEART: Regular rate and rhythm. No murmur heard. Normal peripheral pulses. ABDOMEN: Soft, nontender, nondistended, normal active bowel sounds. EXTREMITIES: Normal range of motion. No edema. SKIN: Warm, dry, no rash. NEURO: No focal deficits. Alert and oriented x3. Course Course Level of Care: Express Care Visit Vital Signs Vital signs: Vital Signs Temperature 36.9 C 08/10/24 15:34 Pulse Rate 80 08/10/24 15:34 Respiratory Rate 16 08/10/24 15:34 Blood Pressure 116/67 08/10/24 15:34 Pulse Oximetry 100 08/10/24 15:34 Temperature 36.9 C 08/10/24 15:34 Pulse Rate 80 08/10/24 15:34 Respiratory Rate 16 08/10/24 15:34 Blood Pressure 116/67 08/10/24 15:34 Pulse Oximetry 100 08/10/24 15:34 Vital signs reviewed. Medical Decision Making MDM Narrative Medical decision making narrative: Plan of care is to recommended OTC antihistamines and meclizine for the fluid behind the ear and dizzness. pt has follow up appt on 08/26/2024 Differential Diagnosis Differential Diagnosis: Differential diagnosis: Otitis media, otitis externa, perforated TM, infection of the outer ear, foreign body or cerumen impaction, ruptured TM, acute mastoiditis, ligament otitis externa, dehydration, pneumonia, sepsis, dental or intraoral infection, TMJ dysfunction Vital Signs Vital Signs: Vital Signs Temperature 36.9 C 08/10/24 15:34 Pulse Rate 80 08/10/24 15:34 Respiratory Rate 16 08/10/24 15:34 Blood Pressure 116/67 08/10/24 15:34 Pulse Oximetry 100 08/10/24 15:34 Temperature 36.9 C 08/10/24 15:34 Pulse Rate 80 08/10/24 15:34 Respiratory Rate 16 08/10/24 15:34 Blood Pressure 116/67 08/10/24 15:34 Pulse Oximetry 100 08/10/24 15:34 Critical Care Time Critical Care Time Critical Care Time: No Discharge Plan Discharge Clinical Impression: Fluid level behind tympanic membrane of left ear Patient Disposition: Home, Self-Care Condition: Stable Instructions: Antibiotic Form, Vertigo (ED), Dizziness (ED) Additional Instructions: Viral illness may last between 7-12days; antibiotic is NOT recommended at this time. Recommend antihistamine such as Benadryl at night time and Claritin/Zyrtec/Lucita during the day may take the meclizine as needed for dizziness Also, recommend symptomatic treatment includes: rest, fluids, and increase humidity of the air at home. Recommend Acetaminophen or nonsteroidal anti-inflammatory agents (NSAIDs) as directed in the bottle to reduce fever and/pain/headache. Avoid smoking/second-hand smoke. Limit visits to areas with large crowds. Please schedule a follow-up visit with your personal physician for further evaluation and treatment within 3-5days. Including recheck and discussion of your blood pressure. If your symptoms persist, change or worsen significantly before you can contact your personal physician then please, without delay, go to the emergency department for further evaluation. Patient Language: Setswana Prescriptions: New meclizine 50 mg tablet 50 mg PO BID PRN (Reason: dizziness) Qty: 7 0RF No Action cholecalciferol (vitamin D3) [Vitamin D3] 25 mcg (1,000 unit) Tablet 25 mcg PO DAILY levocetirizine [Xyzal] 5 mg Tablet 5 mg PO DAILY Adults Multivitamin 18 mg iron-400 mcg-25 mcg Tablet 1 tablet PO DAILY ferrous sulfate [Iron (ferrous sulfate)] 325 mg (65 mg iron) Tablet 325 mg PO DAILY hydrocodone-acetaminophen 5-325 mg tablet 1 - 2 tablet PO Q6H PRN (Reason: pain) Qty: 30 0RF hydrocodone-acetaminophen 5-325 mg tablet 1 - 2 tablet PO Q6H PRN (Reason: pain) Qty: 30 0RF sertraline 25 mg Tablet 25 mg PO HS Follow-up/Referrals: Vanessa,BOSTON Beck [Primary Care Provider] - Time of Disposition: 16:03
== END 2024-08-10 16:15 | disposition home or self-care (01) ==
PROVIDERS: Emergency Provider Nurse Practitioner Family; PCP Physician Assistant
DX: H73.892 Other specified disorders of tympanic membrane, left ear (principal); Z87.891 Personal history of nicotine dependence
CPT/HCPCS: 99213; G0463

== ENCOUNTER 2024-12-25 14:05 | Outpatient (CLI) | payer OTHER, SELFPAY ==
--- NOTE | ~2024-12-25 | MM_ITS ---
EXAMINATION: screening [facility] BI w ade INDICATION: Asymptomatic, referred for screening mammogram COMPARISON: 08/20/2023 through 03/25/2021 TECHNIQUE: Digital Breast Tomosynthesis CC, MLO views of Both breasts were obtained with computer-ai ded detection to assist in interpretation of the study. FINDINGS: The breasts are extremely dense, which lowers the sensitivity of mammography. There is a group of microcalcifications in the retroareolar central right breast at middle depth best visualized on the MLO view. Elsewhere, there are no mammographic features of malignancy. IMPRESSION: 1. Right breast Incompletely characterized group of calcifications. 2. No evidence of malignancy in the Left breast. RECOMMENDATION: Right breast Diagnostic mammogram with true lateral, and appropriate magnification views. BI-RADS Category 0: Incomplete: Needs additional imaging evaluation. Reviewed, dictated and finalized at location B. IMPRESSION: 1. Right breast Incompletely characterized group of calcifications. 2. No evidence of malignancy in the Left breast. RECOMMENDATION: Right breast Diagnostic mammogram with true lateral, and appropriate magnificat ion views. BI-RADS Category 0: Incomplete: Needs additional imaging evaluation.
--- OUTSIDE RECORDS SUMMARY | 2024-12-25 14:17 | XMS_ITS | Clinical Summary ---
Author Organization [facility] Address [address] [place] [id number] Care Team Providers Care Energy Auditor Name Role Phone Valeria Bailey MD Unavailable [phone] Ebony Mendez Primary Care Pr ovider Josh Ronquillo MD PhD Unavailable + Allergies No known active allergies Medications cholecalciferol (VITAMIN D-3) 1,000 unit Take 1 tablet/cap angie (1,000 Units total) by mouth daily Active levocetirizine dihydrochloride (XYZAL ORAL) 2 Active Active Problems Problem Noted Date Diagnosed Date Meningioma 01/09/2018 Encounters Date Type Department Care Team Description 11/14/2024 Orders Only [facility] [address] [place] [address] Josh Ronquillo MD PhD 11/14/2024 Orders Only [facility] [address] [place] [address] Josh Ronquillo MD PhD Meningioma (HCC) 11/13/2024 Orders Only [facility] Oncology [facility] Floor 1, [address] [place] [address] Josh Ronquillo MD PhD Meningioma (HCC) (Primary Dx) 10/15/2024 Documentation [facility] Oncology [facility] Floor 6 [place] [address] Frank Collins CMA Medical Records Request (Request for path share) 10/13/2024 Patient Self-Triage [facility] [address] [place] [address] Mychart, Generic Provider from Last 3 Months Immunizations Immunization Administration Dates Next Due Influenza, Quadrivalent, Spl it, Preservative Free, Intramuscular 04/16/2020 Pfizer SARS-CoV-2 Monovalent Vaccination (12+ Yrs) PURPLE 07/23/2021 Family History Medical History Relation Name Comments Lymphoma Father Relation Name Status Comments Father Alive Social History Tobacco Use Types Packs/Day Years Used Date Smoking Tobacco: Never Smokeless Tobacco: Never Comments Unknown Sex and Gender Information Value Date Recorded Sex Assigned at Not on file Legal Sex Female 12:47 PM CDT Gender Identity Not on file Sexual Orientation Not on file Obstetrics History Last Filed Vital Signs Vital Sign Reading Time Taken Comments Blood Pressure 119/83 07/30/2024 11:41 AM PROGRAM INSTRUCTOR Pulse 73 07/30/2024 11:41 AM PROGRAM INSTRUCTOR Temperature 36.7 C (98 F) 07/30/2024 11:41 AM PROGRAM INSTRUCTOR Respiratory Rate 18 07/30/2024 11:41 AM PROGRAM INSTRUCTOR Oxygen Saturation 100% 07/30/2024 11:41 AM PROGRAM INSTRUCTOR Inhaled Oxygen Concentration - - Weight 89.4 kg (197 lb) 07/30/2024 11:41 AM PROGRAM INSTRUCTOR Height 172.7 cm (5' 8) 07/30/2024 11:41 AM PROGRAM INSTRUCTOR Body Mass Index 29.95 07/30/2024 11:41 AM PROGRAM INSTRUCTOR Plan of Treatment Health Maintenance Due Date Last Done Comments Cervical Cancer Screening 1975 Colon Cancer Screening-Colonoscopy 1975 Depression Screening 1975 Hepatitis C Screening 1975 DTaP/Tdap/Td Vaccine (1 - Tdap) 1986 Hepatitis B Screening 1993 Regular Well Visit/Exam 18-64 1993 Breast Cancer Screening-Mammogram 03/22/2017 03/22/2016 Covid-19 Vaccine ( season) 2024 07/23/2021, 07/23/2021, 11/11/2020, Additional history exists Influenza Vaccine (#1) 2025 , 03/02/2022, 04/16/2020 Pneumococcal vaccine <65 Aged Out No longer eligible based on patient's age to complete this topic Procedures Procedure Name Priority Date/Time Associated Diagnosis Comments SURGICAL PATHOLOGY Routine 11/14/2024 9: 17 AM CDT Meningioma (HCC) CYTOGENETICS Routine 11/14/2024 9:17 AM CDT from Last 3 Months Results * Cytogenetics (11/14/2024 9:17 AM CDT) Miscellaneous 11/14/2024 9:1 7 AM CDT 11/19/2024 4:11 PM CDT Narrative 11/21/2024 4:12 PM CDT PSYCHIATRIC results best viewed via link to PDF [facility] Department of Pathol [address] [place] [id number] Patient Information Name: YUAN HILL Gender: F : 1975 (Age: 49) Tissue: FFPE FISH Visit Information Hospital #: [id number] Facility: [facility] Service: WU Location: [facility] Patient Type: [facility] Specimen Information: Culture #: [id number] Date Collected: 11/14/2024 Date Accessioned: 11/20/2024 Date Ordered: 11/19/2024 Physician(s): Josh Ronquillo M.D. Processing: FFPE FISH - brain, left parietal cranial mass Indication: The patient is a 49-year-old woman with history of an atypical meningioma, resected in 2017, who undergoes yearly MRI monitoring at [facility]. Specimen Quality: Adequate FISH: FFPE CLINICAL REPORT PARAFFIN EMBEDDED FISH Fluorescence In-situ hybridization (FISH) Results: Specimen # [id number] Outside Case # [id number] POSITIVE - FISH result for loss of 22q NEGATIVE - FISH result for 1p36 deletion NEGATIVE - FISH result for homozygous deletion of CDKN2A nuc emily (EWSR1)x1[118/200] nuc emily (1p36,1q25)x2[125/200] nuc emily (XHPI5Uv7~4,CEP9x3~4)[27/200] Chromosome analysis and Fluorescence In Situ Hybridization (FISH) analysis are performed using the [employer] Imaging System. Comments EWSR1-BA for copy number of 22 Fluorescence in situ hybridization (FISH) was performed utilizing a commercial probe for EWSR1-BA on 22q12 ([employer], [place], [place]) to evaluate for copy number of chromosome 22. In this particular case, a loss of 22q was noted in 59% of the 200 interphase nuclei examined utilizing a manual scoring system. This test was developed and its performance characteristics determined by [facility]. It has not been cleared or approved by the FDA. The laboratory is regulated under CLIA as qualified to perform high-complexity testing. This test is used for clinical purposes. It should not be regarded as investigational or for research. 1p FISH Fluorescence in situ hybridization (FISH) was performed on paraffin-embedded tissue with locus-specific commercial probes localizing to 1p36 and 1q25 ([employer], [place], [place]). In this particular case, there were normal dosages (2 copies) of both 1p and 1q noted in the majority of the 200 interphase nuclei examined utilizing a manual scoring system. There was no evidence of 1p deletion. This test was developed and its performance characteristics determined by [facility]. It has not been cleared or approved by the FDA. The laboratory is regulated under CLIA as qualified to perform high-complexity testing. This test is used for clinical purposes. It should not be regarded as investigational or for research. CDKN2A FISH FISH was performed utilizing a commercial centromeric-enumerating probe for chromosome 9 (CEP9) combined with locus-specific probe for CDKN2A ([employer], [place], [place]). 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 There was no evidence of CDKN2A homozygous deletion. This test was developed and its performance characteristics determined by [facility]. It has not been cleared or approved by the FDA. The laboratory is regulated under CLIA as qualified to perform high-complexity testing. This test is used for clinical purposes. It should not be regarded as investigational or for research. Note: The interphase nuclei analyzed in this case were obtained throughout the tissue biopsy as the entire specimen/block received contained tumor cells and no specific areas within the sample were to be excluded as designated on a marked H&E stained slide, provided by the ordering pathologist. Report Electronically Reviewed and Signed Out By Janine Solano MD, [facility], FAAP Date Reported: 11/21/2024 Professor, Division of Genomic & Molecular Pathology Josh Ronquillo MD PhD LAB GENETIC TESTIN G Final Result * Surgical pathology (11/14/2024 9:17 AM CDT) Tissue (Miscellaneous) 11/14/2024 9:17 AM CDT 11/14/2024 9:17 AM CDT Narrative [facility] - 12/02/2024 9:23 AM CDT EPIC results best viewed via link to PDF [facility] Pathology Consult Service [address], [place] [address] Note to Patients: This report may contain a detailed description of human tissue sent by a health care provider to the laboratory for pathologic evaluation. The content of this report is essential for diagnosis and may provide important critical findings. This information may be unfamiliar to patients to review without a medical professional present. It is advised that the patient review this report in the presence of a health care provider who can answer questions and explain the details. SURGICAL PATHOLOGY REPORT * Consult Report * [facility] is providing an additional review of previously collected tissue. FINAL WITH ADDENDUM Patient Name: YUAN HILL Address: [address] [place] [id number] Gender: F : 1975 (Age: 49) Hospital #: [id number] Patient Type: [facility] Location: UNKNOWN Taken: 11/14/2024 Received: 11/14/2024 Accessioned: 11/18/2024 Reported: 12/02/2024 Physician(s): Josh Ronquillo M.D. [facility] Department of Pathology [address] [place] [address] P: [phone] F: [phone] Diagnosis: Consult material received from [place], [place] (OSC: [id number]; 10/26/2016) A. 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 Elaine Johnson MD, PhD Report Electronically Reviewed and Signed Out By Elaine Johnson MD, PhD 12/02/2024 09:23:32 Microscopic Description and Comment: Per the provided report, Ki-67 proliferative index showed moderate staining. It is not apparent that more than one block was submitted but the gross description does not specify. Per reports, there were five mitotic figures per 10 high-power hammer. As requested, immunostains for estrogen receptor and progesterone receptor are performed. Estrogen receptor is negative in tumor cells. As most meningiomas show some degree of progesterone receptor immunoreactivity this tumor also shows weak to moderate staining in approximately 70% of cells. Malissa Lr M.D. History: The patient is a 49-year-old woman with history of an atypical meningioma, resected in 2017, who undergoes yearly MRI monitoring at [facility]. Materials Received: Received for review is one stained slide and fifteen unstained slides labeled [id number], accompanied by a corresponding pathology report. The material originates from [facility], [place], [place]. Selected slide(s) may be digitally scanned for our files, and all materials are returned to the referring institution, along with a copy of our final report. Addenda/Procedures Addendum Ordered: 11/24/2024 Status: Signed Out Addendum Complete: 11/24/2024y: Elaine Johnson MD, PhDAddendum Signed Out: 12/02/2024 Addendum Comment Please see below for FISH testing performed by [facility] and reported on 11/22/2024. By this signature, I attest that the above diagnosis is based upon my personal examination of the slides(and/or other material indicated in the diagnosis). Elaine Johnson MD, PhDReport Electronically Reviewed and Signed Out By Elaine Johnson MD, PhD 12/02/2024 09:25:45 Any testing required for diagnostic purposes was performed in the Department of Pathology and Immunology at [facility], [address] [place] [address] CLIA # [id number] The performance characteristics of the testing cited in this report (if any) were determined by the [facility] Department of Pathology and Immunology [facility], as part of an ongoing director of quality control program and in compliance with federally mandated regulations drawn from the Clinical Laboratory Improvement Act of 1988 (CLIA '88). Some of these tests rely on the use of analyte specific reagents (ASR) and are subject to specific labeling requirements by the US Food and Drug Administration. Such diagnostic tests may only be performed in a facility that is certified by the Department of Health and Human Services as a high complexity laboratory under CLIA '88. The FDA has determined that such clearance or approval is not necessary. ASRs should not be regarded as investigational or for research. ASRs were developed and the performance characteristics determined by the [facility], [facility] Department of Pathology and Immunology. It has not been cleared or approved by the U.S. Food and Drug Administration. Any test designated as LDT was developed and its performance characteristics determined by [facility]. It has not been cleared or approved by the FDA. This test is used for clinical purposes and should not be regarded as investigational or for research. Report images and/or scanned reports, if included, only viewable in PDF version of report. Josh Ronquillo MD PhD LAB PATHOLOGY TRUDY TRAN Final Result [facility] [address] [address] from Last 3 Months Insurance [facility] [place] [address] [address] [place] [address] [facility] [place] [address] [place] [address] [facility] [employer] Care Teams Energy Auditor Relationship Specialty Start Date End Date Ebony Mendez PA PCP - General 01/13/19 Valeria Bailey MD Referring Physician Neurology 01/23/18 Josh Ronquillo MD PhD [id number] [facility] [address] [place] [address] Medical Oncologist/Electrical Maintenance Worker Medical Oncology 08/03/21
--- OUTSIDE RECORDS SUMMARY | 2024-12-25 14:17 | XMS_ITS | Data Portability ---
Author Organization [place] - [facility] [employer], Main Office Address [address] [place] [address] Assessment No assessment recorded. Plan of Treatment Reminders Order Date Submit Date Provider Last Modified By Organization Details Last Modified Time Details Appointments None recorded. Lab TSH + free T4, serum [address] [facility], [address], [address], [place], [address], 3 09:14:50 insulin, serum [address] [facility], 2022 Jul[address], [address], [place], [address], 3 09:14:50 lipid panel, serum [address] [facility], 2022 [address], [address], [place], [address], 3 09:14:50 HbA1c (hemoglobin A1c), blood [address] [facility], 2022 Julisa [address], [address], [place], [address], 3 09:14:50 CBC w/ auto diff [address] [facility], 2022 Julisa [address], [address], [place], [address], 3 09:14:50 CMP, serum or plasma [address] [facility], 2022 Julisa [address], [address], [place], [address], 3 09:14:50 urinalysis complete, reflex culture 2022 023 [facility], [address], [place], [address], 3 09:14:50 Referral None recorded. Procedures None recorded. Surgeries None recorded. Imaging None recorded. Medication Orders sertraline 25 mg tablet 2022 023 [place] [facility], [facility] [address], [address], [place], [place], [id number], 11:03:08 Patient TargetsNo targets recorded. Patient InstructionsNo instructions recorded. Reason for Referral None Reported. Results Created Date Observation Date Name Description Value Unit Range Abnormal Flag Note LastModifiedBy Organization Detail LastModifiedTime 08/15/19 21 08/15/2020 vitam in D, 25-hy droxy , total , serum vitamin D, 25-hydroxy 35.2 NG/mL 30.0-1 00.0 Vitam in D defic iency has been defin ed by the Insti tute of Medic ine and an [facility] ty pract ice guide line as a level of serum 25-OH vitam in D less than 20 ng/mL (1,2) . The [facility] ty went on to [facility] defin e vitam in D insuf ficie ncy as a level betwe en 21 and 29 ng/mL (2). 1. IOM (Inst itute of Medic ine). 2010. Dieta ry refer ence intak es for calci um and D. Theodore calderon [place]: The Natio nal [facility] Press . 2. Yanira GILBERT, Annie queen [place], Shabana off-F errar i VALVERDE, et al. Evalu ation , treat ment, and preve ntion of vitam in D defic iency : an Endoc rine Socie ty clini paulette pract ice guide line. JCEM. 2010; 96(7) :1911 -30. Not Available [facility] ([facility]) [address] [facility], [place], [address], 08/21/2020 07:11:02 08/15/19 21 08/14/2020 methy lmalo mariza, QN, serum or plasm a disclaimer: commen t This test was devel oped and its perfo rmanc e demarco cteri stics deter mined by [facility]. It has not been clear ed or appro boyd by the Food and Drug Admin istra tion. Not Available [facility] ([facility]) [address] [facility], [place], [address], 08/21/2020 07:11:01 08/15/19 21 08/21/2020 methy lmalo mariza, QN, serum or plasm a methylmaloni c acid, serum 175 nmol/ L 0-378 Not Available [facility] ([facility]) [address] [facility], [place], [address], 08/21/2020 07:11:01 08/15/19 21 08/15/2020 vitam in B12 + folat e, serum or blood vitamin B12 532 pg/mL 232-12 45 Not Available [facility] ([facility]) [address] [facility], [place], [address], 08/21/2020 07:11:01 08/15/19 21 08/15/2020 vitam in B12 + folat e, serum or blood folate (folic acid), serum 4.3 NG/mL >3.0 A serum folat e jacob ntrat ion of less than 3.1 ng/mL is consi dered to repre sent clini paulette defic iency . Not Available [facility] ([facility]) [address] [facility], [place], [address], 08/21/2020 07:11:01 10/02/19 22 10/02/2021 HEMOG LOBIN A1C hemoglobin A1C 5.4 % 4.8-5. 6 Predi abete s: 5.7 - 6.4 Diabe gabriela: >6.4 Glyce rachael contr ol for adult s with diabe gabriela: <7.0 Not Available [facility] ([facility]) [address] [place], [address], 10/02/2021 08:11:51 10/02/19 22 10/02/2021 LIPID PANEL W/ CHOL/ HDL RATIO cholesterol, total 178 mg/dL 100-19 9 Not Available [facility] ([facility]) [address] [place], [address], 10/02/2021 08:11:51 10/02/19 22 10/02/2021 LIPID PANEL W/ CHOL/ HDL RATIO triglyceride s 64 mg/dL 0-149 Not Available [facility] ([facility]) [address] [place], [address], 10/02/2021 08:11:51 10/02/19 22 10/02/2021 LIPID PANEL W/ CHOL/ HDL RATIO HDL cholesterol 55 mg/dL >39 Not Available [facility] ([facility]) [address] [place], [address], 10/02/2021 08:11:51 10/02/19 22 10/02/2021 LIPID PANEL W/ CHOL/ HDL RATIO VLDL cholesterol paulette 12 mg/dL 5-40 Not Available [facility] ([facility]) [address] [place], [address], 10/02/2021 08:11:51 10/02/19 22 10/02/2021 LIPID PANEL W/ CHOL/ HDL RATIO LDL chol calc ([facility]) 111 mg/dL 0-99 above high normal Not Available [facility] ([facility]) [address] [place], [address], 10/02/2021 08:11:51 10/02/19 22 10/02/2021 LIPID PANEL W/ CHOL/ 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 chol/HDL ratio 3.2 ratio 0.0-4. 4 T. Chol/ HDL Ratio Men Women 1/2 Avg.R isk 3.4 3.3 Avg.R isk 5.0 4.4 2X Avg.R isk 9.6 7.1 3X Avg.R isk 23.4 11.0 Not Available [facility] ([facility]) [address] [place], [address], 10/02/2021 08:11:51 10/02/19 22 10/02/2021 COMP. METAB OLIC PANEL (14) glucose 98 mg/dL 65-99 Not Available [facility] ([facility]) [address] [place], [address], 10/02/2021 08:11:51 10/02/19 22 10/02/2021 COMP. METAB OLIC PANEL (14) BUN 11 mg/dL 6-24 Not Available [facility] ([facility]) [address] [place], [address], 10/02/2021 08:11:51 10/02/19 22 10/02/2021 COMP. METAB OLIC PANEL (14) creatinine 0.81 mg/dL 0.57-1 .00 Not Available [facility] ([facility]) [address] [place], [address], 10/02/2021 08:11:51 10/02/19 22 10/02/2021 COMP. METAB OLIC PANEL (14) eGFR 91 mL/mi n/1.7 3 >59 Not Available [facility] ([facility]) [address] [place], [address], 10/02/2021 08:11:51 10/02/19 22 10/02/2021 COMP. METAB OLIC PANEL (14) BUN/creatini ne ratio 14 9-23 Not Available [facility] ([facility]) [address] [facility] [place], [address], 10/02/2021 08:11:51 10/02/19 22 10/02/2021 COMP. METAB OLIC PANEL (14) sodium 140 mmol/ L 134-14 4 Not Available [facility] ([facility]) [address] [facility] [place], [address], 10/02/2021 08:11:51 10/02/19 22 10/02/2021 COMP. METAB OLIC PANEL (14) potassium 4.5 mmol/ L 3.5-5. 2 Not Available [facility] ([facility]) [address] [facility], [place], [address], 10/02/2021 08:11:51 10/02/19 22 10/02/2021 COMP. METAB OLIC PANEL (14) chloride 102 mmol/ L 96-106 Not Available [facility] ([facility]) [address] [facility] [place], [address], 10/02/2021 08:11:51 10/02/19 22 10/02/2021 COMP. METAB OLIC PANEL (14) carbon dioxide, total 24 mmol/ L 20-29 Not Available [facility] ([facility]) [address] [facility] [place], [address], 10/02/2021 08:11:51 10/02/19 22 10/02/2021 COMP. METAB OLIC PANEL (14) calcium 10.0 mg/dL 8.7-10 .2 Not Available [facility] ([facility]) [address] [facility] [place], [address], 10/02/2021 08:11:51 10/02/19 22 10/02/2021 COMP. METAB OLIC PANEL (14) protein, total 6.7 g/dL 6.0-8. 5 Not Available [facility] ([facility]) [address] [place], [address], 10/02/2021 08:11:51 10/02/19 22 10/02/2021 COMP. METAB OLIC PANEL (14) albumin 4.3 g/dL 3.8-4. 8 Not Available [facility] ([facility]) [address] [place], [address], 10/02/2021 08:11:51 10/02/19 22 10/02/2021 COMP. METAB OLIC PANEL (14) globulin, total 2.4 g/dL 1.5-4. 5 Not Available [facility] ([facility]) [address] [place], [address], 10/02/2021 08:11:51 10/02/19 22 10/02/2021 COMP. METAB OLIC PANEL (14) A/G ratio 1.8 1.2-2. 2 Not Available [facility] ([facility]) [address] [place], [address], 10/02/2021 08:11:51 10/02/19 22 10/02/2021 COMP. METAB OLIC PANEL (14) bilirubin, total 0.3 mg/dL 0.0-1. 2 Not Available [facility] ([facility]) [address] [place], [address], 10/02/2021 08:11:51 10/02/19 22 10/02/2021 COMP. METAB OLIC PANEL (14) alkaline phosphatase 62 IU/L 44-121 Not Available [facility] ([facility]) [address] [place], [address], 10/02/2021 08:11:51 10/02/19 22 10/02/2021 COMP. METAB OLIC PANEL (14) AST (SGOT) 13 IU/L 0-40 Not Available [facility] ([facility]) [address] [place], [address], 10/02/2021 08:11:51 10/02/19 22 10/02/2021 COMP. METAB OLIC PANEL (14) ALT (SGPT) 11 IU/L 0-32 Not Available [facility] ([facility]) [address] [facility], [place], [address], 10/02/2021 08:11:51 10/02/19 22 10/02/2021 CBC WITH DIFFE RENTI AL/PL ATELE T WBC 8.3 x10e3 /uL 3.4-10 .8 Not Available [facility] ([facility]) [address] [place], [address], 10/02/2021 08:11:50 10/02/19 22 10/02/2021 CBC WITH DIFFE RENTI AL/PL ATELE T RBC 4.43 x10e6 /uL 3.77-5 .28 Not Available [facility] ([facility]) [address] [facility], [place], [address], 10/02/2021 08:11:50 10/02/19 22 10/02/2021 CBC WITH DIFFE RENTI AL/PL ATELE T hemoglobin 13.3 g/dL 11.1-1 5.9 Not Available [facility] ([facility]) [address] [place], [address], 10/02/2021 08:11:50 10/02/19 22 10/02/2021 CBC WITH DIFFE RENTI AL/PL ATELE T hematocrit 40.4 % 34.0-4 6.6 Not Available [facility] ([facility]) [address] [place], [address], 10/02/2021 08:11:50 10/02/19 22 10/02/2021 CBC WITH DIFFE RENTI AL/PL ATELE T MCV 91 fL 79-97 Not Available [facility] ([facility]) [address] [place], [address], 10/02/2021 08:11:50 10/02/19 22 10/02/2021 CBC WITH DIFFE RENTI AL/PL ATELE T MCH 30.0 pg 26.6-3 3.0 Not Available [facility] ([facility]) [address] [facility], [place], [address], 10/02/2021 08:11:50 10/02/19 22 10/02/2021 CBC WITH DIFFE RENTI AL/PL ATELE T MCHC 32.9 g/dL 31.5-3 5.7 Not Available [facility] ([facility]) [address] [facility], [place], [address], 10/02/2021 08:11:50 10/02/19 22 10/02/2021 CBC WITH DIFFE RENTI AL/PL ATELE T RDW 11.9 % 11.7-1 5.4 Not Available [facility] ([facility]) [address] [facility], [place], [address], 10/02/2021 08:11:50 10/02/19 22 10/02/2021 CBC WITH DIFFE RENTI AL/PL ATELE T platelets 284 x10e3 /uL 150-45 0 Not Available [facility] ([facility]) [address] [place], [address], 10/02/2021 08:11:50 10/02/19 22 10/02/2021 CBC WITH DIFFE RENTI AL/PL ATELE T neutrophils 71 % not estab. Not Available [facility] ([facility]) [address] [place], [address], 10/02/2021 08:11:50 10/02/19 22 10/02/2021 CBC WITH DIFFE RENTI AL/PL ATELE T lymphs 20 % not estab. Not Available [facility] ([facility]) [address] [place], [address], 10/02/2021 08:11:50 10/02/19 22 10/02/2021 CBC WITH DIFFE RENTI AL/PL ATELE T monocytes 6 % not estab. Not Available [facility] ([facility]) [address] [place], [address], 10/02/2021 08:11:50 10/02/19 22 10/02/2021 CBC WITH DIFFE RENTI AL/PL ATELE T eos 2 % not estab. Not Available [facility] ([facility]) [address] [place], [address], 10/02/2021 08:11:50 10/02/19 22 10/02/2021 CBC WITH DIFFE RENTI AL/PL ATELE T basos 1 % not estab. 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 0 Not Available [facility] ([facility]) [address] [place], [address], 10/02/2021 08:11:50 10/02/19 22 10/02/2021 CBC WITH DIFFE RENTI AL/PL ATELE T lymphs (absolute) 1.6 x10e3 /uL 0.7-3. 1 Not Available [facility] ([facility]) [address] [place], [address], 10/02/2021 08:11:50 10/02/19 22 10/02/2021 CBC WITH DIFFE RENTI AL/PL ATELE T monocytes(ab solute) 0.5 x10e3 /uL 0.1-0. 9 Not Available [facility] ([facility]) [address] [facility], [place], [address], 10/02/2021 08:11:50 10/02/19 22 10/02/2021 CBC WITH DIFFE RENTI AL/PL ATELE T eos (absolute) 0.2 x10e3 /uL 0.0-0. 4 Not Available [facility] ([facility]) [address] [facility], [place], [address], 10/02/2021 08:11:50 10/02/19 22 10/02/2021 CBC WITH DIFFE RENTI AL/PL ATELE T baso (absolute) 0.0 x10e3 /uL 0.0-0. 2 Not Available [facility] ([facility]) [address] [facility], [place], [address], 10/02/2021 08:11:50 10/02/19 22 10/02/2021 CBC WITH DIFFE RENTI AL/PL ATELE T immature granulocytes 0 % not estab. Not Available [facility] ([facility]) [address] [facility], [place], [address], 10/02/2021 08:11:50 10/02/19 22 10/02/2021 CBC WITH DIFFE RENTI AL/PL ATELE T immature grans (abs) 0.0 x10e3 /uL 0.0-0. 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 Not Available [facility] ([facility]) [address] [facility], [place], [address], 10/02/2021 08:11:50 10/02/19 22 10/02/2021 TSH+F REE T4 TSH 2.560 uIU/m L 0.450- 4.500 Not Available [facility] ([facility]) [address] [facility], [place], [address], 10/02/2021 08:11:50 10/02/19 22 10/02/2021 TSH+F REE T4 T4,free(dire ct) 1.13 NG/dL 0.82-1 .77 Not Available [facility] ([facility]) [address] [facility], [place], [address], 10/02/2021 08:11:50 09/04/19 21 08/27/2020 stres s echoc ardio gram (PROC ) No observ ation record ed. MIGRATION. [facility] (Cardiology & Emg) [address] [place] [address], [place], [address], 08/02/2022 19:30:37 12/02/19 22 12/01/2021 colon oscop y scree romain (PROC ) No observ ation record ed. MIGRATION. [facility] (Medical Records) [address] [place] [address] [address], [place], [address], 08/02/2022 19:30:37 03/09/20 22 03/04/2022 XR, foot No observ ation record ed. MIGRATION. [facility] [address], [place], [address], 08/02/2022 19:30:37 03/27/20 22 03/24/2022 CT, abdom en + pelvi s, w/ contr ast No observ ation record ed. [id number] [facility] [address], [place], [address], 08/02/2022 19:30:37 Result Notes None recorded. Problems Name Problem SNOMED Code Status Onset Date Resolution Date Notes Provider Name and Address Organization Details Recorded Time Generalize d anxiety disorder 75448076 Active 2018 Not Available [facility] 3 19:29:11 Fatigue 38645863 Active 2021 Not Available [facility] 3 19:29:11 Abnormal menstrual cycle 84906824 Active 2021 Not Available [facility] 3 19:29:11 Irritable bowel syndrome with diarrhea 239278922 Active 2021 Not Available [facility] 3 19:29:11 Injury of left foot [id number] 9108 Active 2021 Not Available [facility] 3 19:29:11 Weight gain 5310980 Active 2022 LANG [address], [address], [place], [address] , [employer] 3 10:59:55 Injury of toe 455178359 Active 2022 LANG Hammond [address], [place], [address] , [employer] 3 15:24:49 Notes:02/01/22 positive covid Problem Notes None recorded. Procedures Surgical History Date Name Laterality Status Provider Name and Address Organization Details Recorded Time 05/23/20 22 hysteroscopy completed HALEY Casillas [employer] 08/23/2022 11:13:36 07/05/19 20 excision of squamous cell carcinoma completed Not Available [facility] 08/02/2022 19:28:13 10/03/19 18 Hernia Repair completed Not Available [facility] 2022 19:28:13 10/27/19 17 craniotomy completed Not Available [facility] 3 19:28:13 01/08/20 15 section completed Not Available [facility] 06/2022 19:28:13 05/11/20 13 section completed Not Available [facility] 06/2022 19:28:13 Imaging Results None recorded. Procedure Notes None recorded. Medical Equipment None Reported. Allergies No known drug allergies Medications Name Sig Start Date Stop Date Status Note LastModified by Organization Details LastModified Time medroxyprog esterone 10 mg tablet TAKE 1 TABLET BY MOUTH EVERY DAY FOR 10 DAYS active Not Available Not Available No t Available ketoconazol e 2 % shampoo WASH SCALP ACCORDING TO DIRECTION S (TOPICALL Y 3 TIMES A WEEK) 11/25 completed Not Available Not Available Not Available fluconazole 150 mg tablet TAKE 1 TABLET BY MOUTH EVERY DAY 09/02 completed Not Available Not Available Not Available hydrocodone 5 mg-acetamin ophen 325 mg tablet TAKE 1 TABLET BY MOUTH EVERY 4 HOURS active Not Available Not Available No t Available prednisone 20 mg tablet TAKE 3 TABLETS BY MOUTH ONCE DAILY FOR 5 DAYS 08/23 completed Not Available Not Available Not Available triamcinolo ne acetonide 0.1 % topical cream APPLY A THIN LAYER TO THE AFFECTED AREA(S) BY TOPICAL ROUTE 2 TIMES PER DAY 09/02 completed Not Available Not Available Not Available amoxicillin 875 mg tablet TAKE 1 TABLET BY MOUTH EVERY 12 HOURS FOR 10 DAYS 08/23 completed Not Available Not Available Not Available alprazolam 0.25 mg tablet Take 1 tablet twice a day by oral route as needed. active Not Available Not Available No t Available clindamycin 1 % topical gel APPLY TO ARMS AND LEGS EVERY DAY NEEDED active Not Available Not Available No t Available levetiracet am 250 mg tablet TAKE 0.5-1 TABLET BY MOUTH TWICE A DAY 06/25 completed Not Available Not Available Not Available cephalexin 500 mg capsule TAKE 1 CAPSULE BY MOUTH EVERY 6 HOURS 09/02 completed Not Available Not Available Not Available prednisone 50 mg tablet Take 1 tablet every day by oral route for 5 days. active Not Available Not Available No t Available sertraline 25 mg tablet Take 1 tablet twice a day by oral route. active Not Available Not Available No t Available codeine 10 mg-guaifene sin 100 mg/5 mL oral liquid TAKE 10 ML EVERY 6-8 HOURS BY ORAL ROUTE NEEDED. 10/20 completed Not Available Not Available Not Available Low-Ogestre l (28) 0.3 mg-30 mcg tablet TAKE 1 TABLET BY MOUTH EVERY DAY 08/24 completed Not Available Not Available Not Available methylpredn isolone 4 mg tablets in a dose pack TAKE 6 TABLETS ON DAY 1 DIRECTED ON PACKAGE AND DECREASE BY 1 TAB EACH DAY FOR A TOTAL OF 6 DAYS 10/20 completed Not Available Not Available Not Available albuterol sulfate HFA 90 mcg/actuati on aerosol inhaler 08/18 completed Not Available Not Available Not Available fluticasone propionate 50 mcg/actuati on nasal spray,suspe nsion PLEASE SEE ATTACHED FOR DETAILED DIRECTION S active Not Available Not Available No t Available betamethaso ne dipropionat e 0.05 % lotion APPLY TO AFFECTED AREA TWICE A DAY NEEDED FOR RASH ON SCALP 11/25 completed Not Available Not Available Not Available sertraline 50 mg tablet TAKE 1 TABLET BY MOUTH EVERY DAY IN THE EVENING 01/13 completed 1/2 tab po daily . Not Available Not Available Not Available naproxen 500 mg tablet TAKE 1 TABLET BY MOUTH TWICE A DAY NEEDED FOR PAIN 08/24 completed Not Available Not Available Not Available escitalopra m 10 mg tablet Take 1 tablet every day by oral route. 09/02 completed Not Available Not Available Not Available Xyzal 2021 active Not Available Not Available Not Avai lable tranexamic acid 650 mg tablet TAKE 2 TABLETS BY MOUTH THREE TIMES DAILY active Not Available Not Available No t Available Sutab 1.479-0.188 -0.225 gram tablet 08/24 completed Not Available Not Available Not Available Vitals Date Recorded Body mass index (BMI) Body height Oxygen saturation Oxygen saturation in Arterial blood by Pulse oximetry Heart rate Respiratory rate Body temperature Body weight Systolic And Diastolic Provider Name and Address Organization Details Last Updated DateTime 1 27.9 kg/m2 176.78 cm 98 % 98 % 81 /min 16 /min 98.2 [degF] 66452.7 4 g 96/62 mm[Hg] Not Available [employer] 3 19:28:20 Date Recorded Body mass index (BMI) Body height Oxygen saturation Oxygen saturation in Arterial blood by Pulse oximetry Heart rate Respiratory rate Body temperature Body weight Systolic And Diastolic Provider Name and Address Organization Details Last Updated DateTime 2 26.6 kg/m2 176.78 cm 97 % 97 % 90 /min 16 /min 98.2 [degF] 21111.1 2 g 120/70 mm[Hg] Not Available [facility] 3 19:28:20 Date Recorded Body mass index (BMI) Body height Oxygen saturation Oxygen saturation in Arterial blood by Pulse oximetry Heart rate Body temperature Body weight Systolic And Diastolic Provider Name and Address Organization Details Last Updated DateTime 1 27.8 kg/m2 176.78 cm 98 % 98 % 75 /min 97.9 [degF] 01903.6 6 g 112/60 mm[Hg] Not Available [facility] 3 19:28:20 Date Recorded Body height Body temperature Body mass index (BMI) Body weight Heart rate Oxygen saturation Oxygen saturation in Arterial blood by Pulse oximetry Systolic And Diastolic Provider Name and Address Organization Details Last Updated DateTime 3 176.78 cm 97.4 [degF] 28.3 kg/m2 84905.5 1 g 84 /min 98 % 98 % 116/82 mm[Hg] Brenda Hyde RN [place] - [facility] [email or web address] [facility] 3 10:45:29 Date Recorded Body mass index (BMI) Body height Oxygen saturation Oxygen saturation in Arterial blood by Pulse oximetry Heart rate Respiratory rate Body temperature Body weight Systolic And Diastolic Provider Name and Address Organization Details Last Updated DateTime 2 26.9 kg/m2 176.78 cm 98 % 98 % 77 /min 16 /min 98.3 [degF] 79008.5 9 g 122/66 mm[Hg] Not Available [facility] 3 19:28:20 Social History Question Answer Notes LastModified by Organizat ion Details LastModified Time Tobacco Smoking Status Never Smoker Not Available [facility] 08/02/2022 19:28:01 What Is Your Level Of Caffeine Consumption? Heavy [id number] Information not available 08/02/2022 How Much Tobacco Do You Chew? None [id number] Information not available 08/02/2022 In The 14 Days Before Symptom Onset, Have You Had Close Contact With A Laboratory-confirm ed COVID-19 While That Case Was Ill? No [id number] Information not available 08/02/2022 In The 14 Days Before Symptom Onset, Have You Had Close Contact With A Person Who Is Under Investigation For COVID-19 While That Person Was Ill? No [id number] Information not available 08/02/2022 What Type Of Diet Are You Following? REGULAR [id number] Information not available 08/02/2022 Which Illicit Or Recreational Drugs Have You Used? None [id number] Information not available 08/02/2022 Have There Been Any Changes To Your Family Or Social Situation? No [id number] Information not available 08/02/2022 Are There Any Guns Present In Your Home? No [id number] Information not available 08/02/2022 Do You Use Insect Repellent Routinely? No [id number] Information not available 08/02/2022 What Is Your Relationship Status? [id number] Information not available 08/02/2022 Do You Use Your Seat Belt Or Car Seat Routinely? Yes [id number] Information not available 08/02/2022 Do You Have Smoke And Carbon Monoxide Detectors In Your Home? Yes [id number] Information not available 08/02/2022 How Much Tobacco Do You Smoke? No [id number] Information not available 08/02/2022 Do You Use Sunscreen Routinely? Yes [id number] Information not available 08/02/2022 How Many Years Have You Smoked Tobacco? 0 [id number] Information not available 08/02/2022 Have You Recently Traveled Abroad? No [id number] Information not available 08/02/2022 Do You Have Any Dietary Restrictions? No [id number] 026 Information not available 08/02/2022 Sex: Unknown Functional Status Question Answer Note LastModified by Organizat ion Details LastModified Time Do you use any illicit or recreational drugs? No [id number] Information not available 08/02/2022 Do you or have you ever used any other forms of tobacco or nicotine? No [id number].[id number] Information not available 08/02/2022 What is your level of alcohol consumption? None [id number] Information not available 08/02/2022 Do you or have you ever used smokeless tobacco? Never used smokeless tobacco [id number].[id number] Information not available 08/02/2022 Are you currently employed? 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 Never used electronic cigarettes [id number].[id number] Information not available 08/02/2022 What is your exercise level? Occasional [id number] Information not available 08/02/2022 Mental Status None recorded. Family History Relationship Description Onset Age of this Age Resolved Age Notes LastModified by Organization Details LastModified Time Father Non-Hodgkin' s lymphoma (clinical) [id number] Not available 08/02/2022 19:28:14 Maternal Grandmother Aneurysm [id number] Not available 08/02/2022 19:28:14 Medical History Condition Response CHEST XRAY N KIDNEY STONES N MRSA N CARPAL TUNNEL SYNDROME N HISTORY OF DRUG ABUSE N RADIATION / CHEMOTHERAPY N COPD N BLOOD DISEASES N SURGERY N MUMPS N BOWEL PROBLEMS N FAILED BACK SYNDROME N STROKE/TIA N THYROID DISEASE N LYMPHEDEMA N ULCERS N OTHER MODALITIES N CERVICALGIA N TB SKIN TEST N MYOCARDIAL INFARCTION N PARAPELGIA N OBESITY N URINARY/BLADDER/KIDNEY PROBLEMS N Increased Urination N INPATIENT PSYCH CARE N CORONARY ARTERY DISEASE (CAD) N MENIERE'S DISEASE N CAROTID STENOSIS N ADDICTION CONCERNS N Impotence N ENDOMETRIOSIS N PARATHYROID DISEASE N PERIPHERAL VASCULAR DISEASE N MUSCLE,JOINT OR BONE PROBLEMS N DVT N STOMACH ULCERS N GASTROINTESTINAL BLEEDING N BLOOD CLOTS N PAST HISTORY OF VEHICULAR ACCIDENT N Difficulty Urinating N ASTHMA N USE OF NSAIDS N ARTERIAL INSUFFICIENCY N GI PROBLEMS N CHF N Low Testosterone N VISION/EYE PROBLEMS N MALE HYPOGONADISM N TOURETTE'S N ANXIETY DISORDER Y CHRONIC EAR INFECTIONS N BIPOLAR DISORDER N CONDUCT DISORDER N OSTEOARTHRITIS N TUBERCULOSIS N DIVERTICULITIS N SLEEP APNEA N ALLERGIES/HAYFEVER N PROSTATE N HEART ARRHYTHMIA N INSOMNIA N PAST MEDICATION HISTORY N EYE PROBLEMS N EDEMA N HYPOTHYROIDISM N CONSTIPATION N CAROTID BLOCKAGE N MOOD DISORDER N BACK / NECK PROBLEMS N MIGRAINES N BREAST PROBLEMS N POLYCYSTIC OVARIES N FIBROMYALGIA N OSTEOPOROSIS N PERIPHERAL NEUROPATHY N APPENDICITIS N VON WILLIBRAND'S DISEASE N SEASONAL ALLERGIES N HEARTBURN / REFLUX N PLEURISY N AFIB N ADD/ADHD N Bronchoscopy N AUTISM SPECTRUM DISORDER (ASD) N SLEEP DISORDER N RETINOPATHY N HEADACHES/MIGRAINES N SLEEP STUDY N VASCULAR DISEASE N Blood Disorder N HEART DISEASE/HEART PROBLEMS N MULTIPLE SCLEROSIS N DEVELOPMENTAL OR BEHAVIORAL DISORDERS N CLAUDICATION N PULMONARY FUNCTION TEST N ANESTHESIA COMPLICATIONS N Gall Stones N ATRIAL FIBRILLATION N PULMONARY EMBOLISM N AUTOIMMUNE DISEASE N NERVE DISEASE N BLINDNESS N RHEUMATIC FEVER N BLADDER PROBLEMS N Enlarged Prostate N OTHER # 1 N POLIO N LUNG DISEASE/DISORDER N Other # 2 N EAR OR HEARING PROBLEMS N PAST SPINAL SURGERY N SCHIZOPHRENIA N FEMALE PROBLEMS / INFECTIONS N DEPRESSION (INCLUDING POST ) N CHEST CT N RENAL INSUFFICIENCY N BENIGN PROSTATIC HYPERPLASIA N MEASLES N HYPOTENSION N GERD/NAUSEA N EXCESSIVE PERSPIRATION N ANEURYSM N USE OF BLOOD THINNERS N SKIN PROBLEMS N EMPHYSEMA N SHORTNESS OF BREATH N GASTROINTESTINAL DISORDER N PTSD N CATARACTS N CONCUSSION OR SPINAL TRAUMA N ERECTILE DYSFUNCTION N VARICOSITIES N NEUROPATHY N INFERTILITY N AIDS/HIV N FRACTURES N CHEMOTHERAPY / RADIATION N LIVER DISEASE N HYPERTENSION N Deficiency N Metal allergy N BLOOD TRANSFUSION N ANEMIA/BLOOD DISORDER N BRONCHITIS N GLAUCOMA N FOOT PROBLEM N HEART VALVE DISORDERS N CHICKENPOX N BACK INJECTIONS N INFECTIOUS DISEASE N ESRD N PAST INTERVENTIONAL PAIN MANAGEMENT HIST ORY N RHEUMATOID ARTHRITIS N HIGH CHOLESTEROL / HYPERLIPIDEMIA N HYPERTHYROIDISM N UTI N PVD N EATING DISORDER N NEUROLOGICAL PROBLEMS N CHRONIC PAIN SYNDROME N HAVE YOU BEEN HOSPITALIZED OR SEEN IN [facility] IN THE PAST YEAR ? N ATHEROSCLEROSIS N BURSITIS N HERNIATED DISC N DIALYSIS N ECZEMA N HISTORY WITH COMPLICATIONS WITH ANESTHES IA ? N PSYCHOSIS N ARTHRITIS N RESPIRATORY PROBLEMS N PAST HISTORY OF FALL N NO SIGNIFICANT PAST MEDICAL HISTORY N DIABETES, TYPE N BAD TEETH N ENT N POST LAMINECTOMY SYNDROME N HEPATITIS / LIVER DISEASE N PULMONARY DISEASE N GOUT N ALZHEIMER'S DISEASE N PAIN N FATIGUE N Brain Problems N HERPES N DEMENTIA N SEIZURES/EPILEPSY N PACEMAKER N DIZZINESS Y HEAD TRAUMA OR INJURY N KIDNEY DISEASE N SCARLET FEVER N MENTAL DISORDER/ILLNESS N NEUROPSYCHOLOGICAL N CARDIAC ARRHYTHMIA N CANCER: SPECIFY N PNEUMONIA N Gynecological History Statement/Question Response Menses Monthly Y How many live births 2 Date of Last Pap 06/04/2017 Date of Last Mammogram 11/26/2019 Sexually Active? Y Obstetrics History GPAL:G 2 P 0 0 0 2 Type Value Living 2 Total 2 Immunizations Vaccine Type Date Status Note Provider Nasir dooley and Address Organization Details Recorded Time COVID-19, mRNA, LNP-S, PF, 30 mcg/0.3 mL dose 07/23/2021 completed Not Available [facility] 19:30:18 Influenza, split virus, quadrivalent, PF 04/16/2020 completed Not Available [facility] 19:30:18 Past Encounters Encounter ID Performer Location Encounter Start Date Encounter Closed Date Diagnosis/Indication Diagnosis SNOMED-CT Code Diagnosis ICD10 Code Diagnosis Note [id number] LANG Hammond [facility] [place] [address] [place] [address] 08/12/2020 00:00:00 08/30/2020 23:28:54 [id number] LANG Hammond [facility] [place] [address] [place] [address] 08/19/2020 00:00:00 08/22/2020 21:49:52 [id number] LANG Hammond [facility] [place] [address] [place] [address] 08/18/2021 00:00:00 08/18/2021 13:37:55 [id number] Ramsey Quezada MD [facility] [place] [address] [place] [address] 11/25/2021 00:00:00 11/27/2021 12:44:36 [id number] LANG Hammond [facility] [place] [address] [place] [address] 08/24/2022 10:40:07 08/24/2022 11:07:56 Adult health examination 786737495 Z00.00 well exam completed. labs ordered fasting. Generalize d anxiety disorder 53816871 F41.1 Rx for sertraline 25mg bidf Cholesterol screening 27 9368255 Z13.220 fasting lipids due Diabetes m ellitus screening 046038178 Z13.1 screening diabetes ordered Weight gain 7884147 R63. 5 screening insulin and TFTs Health Concerns Section Related Observation LastModified by Organization Detai ls LastModified Time None Recorded Concern Status LastModified by Organization Details LastModified Time None Recorded Advance Directives Directive None Recorded Payers Insurance Date Sequence Insurance Name Policy Number Policy Aquino Covered Member ID Aquino Member ID Guarantor Name 02/26/2023 1 [facility] [id number] Afshan Hill [id number] Afshan Hill 10/20/2022 [facility] Afshan Hill SELF SELF Afshan Hill Notes Date Note Type Note Provider Name and Address Organization Details Recorded Time 08/12/2020 text/html Anxiety, General ized DisorderReported bypatient.Severity:mi ld; reports improvement Context:obsessive-com pulsive Modifying Factors:psychotropic medication; sertraline 25mg Associated Symptoms:no difficulty concentrating; no difficulty controlling worry; no difficulty swallowing; no anxiety; no excessive sweating; no hot flashes; no palpitations; no shortness of breath; no nausea; no diarrhea; no fatigue; no irritability; no muscle tension; no muscle aches; no trembling; no twitching; no headaches; no restlessness; no sleep disturbancesNotes:Pt reports she does not like taking pills and would like to stop taking sertraline.Generic HPI TemplateReported bypatient.Notes:Pt presents today for routine follow up for her anxiety. Pt also wants to discuss tingling in her limbs she states has subsided. Reports this occurred four times in five days one week ago but, wants to know what to do if it occurs again. States it was mostly left-sided. Not Available [employer] 08/30/2020 23:28:54 08/19/2020 text/html Generic HPI TemplateReported bypatient.Notes:Still having tingling through her left limbs, cramps in her left leg, not feeling well all together. Pt presents today for routine follow up for her anxiety. Pt also wants to discuss tingling in her limbs she states has subsided. Reports this occurred four times in five days one week and now more frequent. she is up to date on MRI recently with neuro-oncology. She contacted them again to review the MRI for any signs of possible Multiple sclerosis and the doctor said it was clear. She is stable on her SSRI for anxiety, but continues to have paresthesias in LUE and LLE. Not Available [employer] 08/22/2020 21:49:52 08/18/2021 text/html Anxiety/Depressi onRep orted bypatient.Quality:inc reased anxiety; doesnt matter time of day. Severity:denies suicidal ideations; able to maintain relationships; does not interfere with activities of daily living Duration:symptoms lasting over 2 weeks Onset/Timing:still present Context:major life stressors Modifying Factors:not on anything. Associated Symptoms:denies homicidal ideations; no significant weight gain; no significant weight loss; no visual/auditory hallucinations; no delusions; no shortness of breath; no crying spells; no panic; no isolation; sleeping well; appetite good; energy good; no apathy; maintaining functionality;anxiety Not Available [employer] 08/18/2021 13:37:55 11/25/2021 text/html Generic HPI TemplateReported bypatient.Onset/Timin g:Started years ago Context:Diarrea occurred 3-4x last week Aggravating factors:not specified, could be ice cream related, also happens when she eats salad(ranch) Associated Symptoms:Nausea on days that she has diarreaNotes:GI issues, has upcoming colonoscopy planned for next week. Not Available [employer] 11/27/2021 12:44:36 08/24/2022 text/html Anxiety, General ized DisorderReported bypatient.Modifying Factors:other medications Associated Symptoms:no difficulty concentrating; no difficulty controlling worry; no difficulty swallowing; no anxiety; no excessive sweating; no hot flashes; no palpitations; no shortness of breath; no nausea; no diarrhea; no fatigue; no irritability; no muscle tension; no muscle aches; no trembling; no twitching; no headaches; no restlessness; no sleep disturbances LANG Hammond [address], [place] [address], [place], [address], [employer] 08/31/2022 18:15:10 OBGyn Episode No OBEpisode recorded.
--- OUTSIDE RECORDS SUMMARY | 2024-12-25 14:17 | XMS_ITS | Encounter Summary ---
Author Organization [facility] Address [address] [place] [address] Care Team Providers Care Mobile Solutions Architect Name Role Phone Unavailable Primary Care Provider Unavailabl e Encounter Details Date Type Department Care Team (Late st Contact Info) Description 11/17/2022 Lab Requisition [facility] - Derm[facility] Lab [address] [place] [id number] Solis Lang MD [address] [place] [address] Social History Tobacco Use Types Packs/Day Years Used Date Smoking Tobacco: Never Assessed Comments Unknown Sex and Gender Information Value Date Recorded Sex Assigned at Not on file Legal Sex Female 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 Gender Identity Not on file Sexual Orientation Not on file documented as of this encounter Plan of Treatment Not on file documented as of this encounter Procedures Procedure Name Priority Date/Time Associated Diagnosis Comments DERMATOPATHOLOGY Routine 11/16/2022 12:0 0 AM CDT documented in this encounter Results * DERMATOPATHOLOGY (11/16/2022 12:00 AM CDT) Case Report Dermatopathology Report Case: [id number] Authorizing Provider: Solis Lang MD Collected: 11/16/2022 12:00 AM Ordering Location: [facility] Received: 11/20/2022 07:27 AM Pathologist: Zainab Rousseau MD Specimens: A) - Skin, right forearm B) - Skin, right med lower leg 3 2:58 PM CDT DERMATOPATHOLOGY LABORATORY Final Diagnosis Specimen A. SKIN, right forearm: LICHEN PLANUS-LIKE KERATOSIS (BENIGN LICHENOID KERATOSIS), RESOLVING (L82.1) Specimen B. SKIN, right med lower leg: BENIGN VERRUCOUS KERATOSIS, INFLAMED (L82.1) 3 2:58 PM T DERMATOPATHOLOGY LABORATORY at 1457 CDT Clinical History A: Path# [id number] B: Path# [id number] 3 2:58 PM T DERMATOPATHOLOGY LABORATORY Gross Description Specimen A: Received is one formalin filled container labeled with the patient's name and designated right forearm. The specimen consists of a shave biopsy measuring 9x4x1 mm. Jar 0. Specimen B: Received is one formalin filled container labeled with the patient's name and designated right med lower leg. The specimen consists of a shave biopsy measuring 9x7x1 mm. Jar 0. 3 2:58 PM CDT DERMATOPATHOLOGY LABORATORY Microscopic Description Specimen A. SKIN, right forearm: The epidermis is mildly acanthotic. There is a mild lichenoid infiltrate with vacuolar changes of basilar keratinocytes and scattered necrotic keratinocytes. Specimen B. SKIN, right med lower leg: Sections show hyperkeratosis, papillomatosis, hypergranulosis, and acanthosis. Inflammatory cells are present within the dermis. These histological findings can be seen in a verruca vulgaris or a seborrheic keratosis. 3 2:58 PM CDT DERMATOPATHOLOGY LABORATORY Disclaimer An external and internal positive and negative controls are appropriate for the histochemical, immunohistochemical and immunofluorescence stain(s) in this case (if any), except where stated explicitly. The performance characteristics of the stain(s) cited in this report were developed and its performance characteristic determined by the Dermatopathology Laboratory at [facility], directed by Dr. Fernie Rousseau. These tests need not be, and therefore are not, approved by the [place] Food and Drug Administration. The tests are used for clinical purposes. Billing Codes Specimen Charges Stain Charges 38384 28598 1 1 3 2:58 PM CDT DERMATOPATHOLOGY LABORATORY Embedded Images 3 2:58 PM CDT DERMATOPATHOLOGY LABORATORY Pathology/Cytology TISSUE SPECIMEN FROM SKIN / Unknown 11/16/2022 11/20/2022 7:27 AM CDT Miscellaneous samples (specimen) TISSUE SPECIMEN FROM SKIN / Unknown 11/16/2022 11/20/2022 7:27 AM CDT us Solis Lang MD LAB - PATHOLOGY/CYTOLOGY ORDER PIEDAD Final Result DERMATOPATHOLOGY LABORATORY [facility] - Department of Dermatology [facility] [address] [place] [address], [address] [phone] documented in this encounter Visit Diagnoses Not on filedocumented in this encounter
--- OUTSIDE RECORDS SUMMARY | 2024-12-25 14:17 | XMS_ITS | Clinical Summary ---
Author Organization [facility] Address [address] [place] [place] [address] Care Team Providers Care Computer Software Engineer Name Role Phone Unavailable Primary Care Provider Unavailabl e Source Comments [facility],non-owned Affiliates and Associated Physician Practices is amultiple site organization consisting of ambulatory clinics and hospital sitesin [place], [place], [place] and [place]. This disclosure is being madepursuant to the Care Everywhere program and may not contain all information available regarding this patient. 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 Gender Identity Not on file Sexual Orientation Not on file Plan of Treatment Health Maintenance Due Date Last Done Comments COLOGUARD (AGES 45-75) - COL ON CA SCREENING 1975 COLON MONITORING 1975 COLONOSCOPY - COLON CA SCREENING 1975 CT COLONOGRAPHY - COLON CA SCREENING 1975 Colorectal Cancer Screening 1975 FIT - COLON CA SCREENING 1975 FLEX SIG - COLON CA SCREENING 1975 LIPID TESTING 1975 MAMMOGRAM 1975 HIV SCREENING 1990 HEPATITIS C SCREENING 07/15/1993 DTAP/TDAP/TD VACCINES (1 - Tdap) 1994 HEPATITIS B VACCINE (1 of 3 - 19+ 3-dose series) 1994 PAP SMEAR 1996 COVID-19 VACCINE ( - 2023-2 5 season) 2024 DEPRESSION SCREENING 06/04/2024 INFLUENZA VACCINE (#1) 2025 ZOSTER VACCINE (1 of 2) 2025 HIB VACCINE Aged Out No longer eligi ble based on patient's age to complete this topic HPV VACCINE Aged Out No longer eligi ble based on patient's age to complete this topic MENINGOCOCCAL (Group B) VACC INE SHARED DECISION-MAKING Aged Out No longer eligibl e based on patient's age to complete this topic MENINGOCOCCAL GROUPS A/C/Y/W VACCINE Aged Out No longer eligible b ased on patient's age to complete this topic Insurance [place] [id number] [place] [id number]
--- OUTSIDE RECORDS SUMMARY | 2024-12-25 14:17 | XMS_ITS | Referral Summary ---
Author Organization [facility] Address [address] [place] [id number] Care Team Providers Care Restaurant Crew Name Role Phone Valeria Bailey MD Unavailable [phone] Ebony Mendez Primary Care Pr ovider Josh Ronquillo MD PhD Unavailable + Encounters Date Type Department Care Team Description 11/14/2024 Orders Only [facility] [address] [place] [address] Josh Ronquillo MD PhD 11/14/2024 Orders Only [facility] [address] [place] [address] Josh Ronquillo MD PhD Meningioma (HCC) 11/13/2024 Orders Only [facility] Oncology [facility] Floor 1, [address] [place] [address] Josh Ronquillo MD PhD Meningioma (HCC) (Primary Dx) 10/15/2024 Documentation [facility] Oncology [address] [place] [address] Floor [address] [place] [address] Frank Collins CMA Medical Records Request (Request for path share) 10/13/2024 Patient Self-Triage [facility] [address] [place] [address] Mychart, Generic Provider from Last 3 Months Allergies No known active allergies Medications cholecalciferol (VITAMIN D-3) 1,000 unit Take 1 tablet/cap angie (1,000 Units total) by mouth daily Active levocetirizine dihydrochloride (XYZAL ORAL) 2 Active Active Problems Problem Noted Date Diagnosed Date Meningioma 01/09/2018 Immunizations Immunization Administration Dates Next Due Influenza, Quadrivalent, Spl it, Preservative Free, Intramuscular 04/16/2020 Pfizer SARS-CoV-2 Monovalent Vaccination (12+ Yrs) PURPLE 07/23/2021 Social History Tobacco Use Types Packs/Day Years Used Date Smoking Tobacco: Never Smokeless Tobacco: Never Comments Unknown Sex and Gender Information Value Date Recorded Sex Assigned at Not on file Legal Sex Female 12:47 PM CDT Gender Identity Not on file Sexual Orientation Not on file Last Filed Vital Signs Vital Sign Reading Time Taken Comments Blood Pressure 119/83 07/30/2024 11:41 AM VALUE ANALYSIS COORDINATOR Pulse 73 07/30/2024 11:41 AM VALUE ANALYSIS COORDINATOR Temperature 36.7 C (98 F) 07/30/2024 11:41 AM VALUE ANALYSIS COORDINATOR Respiratory Rate 18 07/30/2024 11:41 AM VALUE ANALYSIS COORDINATOR Oxygen Saturation 100% 07/30/2024 11:41 AM VALUE ANALYSIS COORDINATOR Inhaled Oxygen Concentration - - Weight 89.4 kg (197 lb) 07/30/2024 11:41 AM VALUE ANALYSIS COORDINATOR Height 172.7 cm (5' 8) 07/30/2024 11:41 AM VALUE ANALYSIS COORDINATOR Body Mass Index 29.95 07/30/2024 11:41 AM VALUE ANALYSIS COORDINATOR Plan of Treatment Not on file Procedures Procedure Name Priority Date/Time Associated Diagnosis Comments SURGICAL PATHOLOGY Routine 11/14/2024 9: 17 AM CDT Meningioma (HCC) CYTOGENETICS Routine 11/14/2024 9:17 AM CDT from Last 3 Months Results * Cytogenetics (11/14/2024 9:17 AM CDT) Miscellaneous 11/14/2024 9:1 7 AM CDT 11/19/2024 4:11 PM CDT Narrative 11/21/2024 4:12 PM CDT [facility] results best viewed via link to PDF [facility] Department of Pathol [address] [place] [address] Patient Information Name: YUAN HILL Gender: F : 1975 (Age: 49) Tissue: FFPE FISH Visit Information Hospital #: [id number] Facility: [facility] Service: WU Location: [facility] Patient Type: [facility] Specimen Information: Culture #: [id number] Date Collected: 11/14/2024 Date Accessioned: 11/20/2024 Date Ordered: 11/19/2024 Physician(s): Josh Ronquillo M.D. Processing: FFPE FISH - brain, left parietal cranial mass Indication: The patient is a 49-year-old woman with history of an atypical meningioma, resected in 2017, who undergoes yearly MRI monitoring at [facility]. Specimen Quality: Adequate FISH: FFPE CLINICAL REPORT PARAFFIN EMBEDDED FISH Fluorescence In-situ hybridization (FISH) Results: Specimen # [id number] Outside Case # [id number] POSITIVE - FISH result for loss of 22q NEGATIVE - FISH result for 1p36 deletion NEGATIVE - FISH result for homozygous deletion of CDKN2A nuc emily (EWSR1)x1[118/200] nuc emily (1p36,1q25)x2[125/200] nuc emily (LRSR6Dw9~4,CEP9x3~4)[27/200] Chromosome analysis and Fluorescence In Situ Hybridization (FISH) analysis are performed using the [employer] Cytovision Imaging System. Comments EWSR1-BA for copy number of 22 Fluorescence in situ hybridization (FISH) was performed utilizing a commercial probe for EWSR1-BA on 22q12 ([employer], [place], [place]) to evaluate for copy number of chromosome 22. In this particular case, a loss of 22q was noted in 59% of the 200 interphase nuclei examined utilizing a manual scoring system. This test was developed and its performance characteristics determined by [facility]. It has not been cleared or approved by the FDA. The laboratory is regulated under CLIA as qualified to perform high-complexity testing. This test is used for clinical purposes. It should not be regarded as investigational or for research. 1p FISH Fluorescence in situ hybridization (FISH) was performed on paraffin-embedded tissue with locus-specific commercial probes localizing to 1p36 and 1q25 ([employer], [place], [place]). In this particular case, there were normal dosages (2 copies) of both 1p and 1q noted in the majority of the 200 interphase nuclei examined utilizing a manual scoring system. There was no evidence of 1p deletion. This test was developed and its performance characteristics determined by [facility]. It has not been cleared or approved by the FDA. The laboratory is regulated under CLIA as qualified to perform high-complexity testing. This test is used for clinical purposes. It should not be regarded as investigational or for research. CDKN2A FISH FISH was performed utilizing a commercial centromeric-enumerating probe for chromosome 9 (CEP9) combined with locus-specific probe for CDKN2A ([employer], [place], [place]). 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 There was no evidence of CDKN2A homozygous deletion. This test was developed and its performance characteristics determined by [facility]. It has not been cleared or approved [...] and Signed Out By Janine Solano MD, FAC, FAAP Date Reported: 11/21/2024 Professor, Division of Genomic & Molecular Pathology Josh Ronquillo MD PhD LAB GENETIC TESTIN G Final Result * Surgical pathology (11/14/2024 9:17 AM CDT) Tissue (Miscellaneous) 11/14/2024 9:17 AM CDT 11/14/2024 9:17 AM CDT Narrative [facility] - 12/02/2024 9:23 AM CDT EPIC results best viewed via link to PDF [facility] Pathology Consult Service [address], [place] [address] Note to Patients: This report may [...] SURGICAL PATHOLOGY REPORT * Consult Report * [facility] is providing an additional review of previously collected tissue. FINAL WITH ADDENDUM Patient Name: YUAN HILL Address: [address] [place] [address], [place] [address] Gender: F : 1975 (Age: 49) Hospital #: [id number] Patient Type: NURY Location: UNKNOWN Taken: 11/14/2024 Received: 11/14/2024 Accessioned: 11/18/2024 Reported: 12/02/2024 Physician(s): Josh Ronquillo M.D. [facility] Department of Pathology [address] [place] [address] P: [phone] F: [phone] Diagnosis: Consult material received from [facility], [place], [place] (OSC: [id number]; 10/26/2016) A. 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 Materials Received: Received for review is one stained slide and fifteen unstained slides labeled [id number], accompanied by a corresponding pathology report. The material originates from [facility], [place], [place]. Selected slide(s) may be digitally scanned for our files, and all materials are returned to the referring institution, along with a copy of our final report. Addenda/Procedures Addendum Ordered: 11/24/2024 Status: Signed Out Addendum Complete: 11/24/2024y: Elaine Johnson MD, PhDAddendum Signed Out: 12/02/2024 Addendum Comment Please see below for FISH testing performed by [facility] and reported on 11/22/2024. By this signature, I attest that the above diagnosis is based upon my personal examination of the slides(and/or other material indicated in the diagnosis). Elaine Johnson MD, PhDReport Electronically Reviewed and Signed Out By Elaine Johnson MD, PhD 12/02/2024 09:25:45 Any testing required for diagnostic purposes was performed in the Department of Pathology and Immunology at [facility], [address] [place] [id number] CLIA # [id number] The performance characteristics of the testing cited in this report (if any) were determined by the [facility] Department of Pathology and Immunology [facility], as part of an ongoing quality engineering manager program and in compliance with federally mandated [...] and the performance characteristics determined by the [facility], [facility] Department of Pathology and Immunology. It has not been cleared or approved by the U.S. Food and Drug Administration. Any test designated as LDT was developed and its performance characteristics determined by [facility]. It has not been cleared or approved by the FDA. This test is used for clinical purposes and should not be regarded as investigational or for research. Report images and/or scanned reports, if included, only viewable in PDF version of report. Josh Ronquillo MD PhD LAB PATHOLOGY GARRYFavio BROSTEF Final Result [facility] [address] [place] [address] from Last 3 Months Insurance [facility] Address: [place] [address] [facility] Address: [place] [address] [facility] [facility]/PPO Address: [facility] [address] [phone] Care Teams Restaurant Crew Relationship Specialty Start Date End Date Ebony Mendez PA PCP - General 01/13/19 Valeria Bailey MD Referring Physician Neurology 01/23/18 Josh Ronquillo MD PhD [address] [facility] [address] [place] [address] Medical Oncologist/Hand Packer Medical Oncology 08/03/21
--- OUTSIDE RECORDS SUMMARY | 2024-12-25 14:17 | XMS_ITS | Data Portability ---
Author Organization [facility] Address [address] [facility] [place] [address] Care Team Providers Care Hay Buckler Name Role Phone RODRIGUEZ REEVES Primary Care Provider Unavailab le Assessment No assessment recorded. Plan of Treatment Reminders Order Date Submit Date Provider Last Modified By Organization Details Last Modified Time Details Appointments None recorded. Lab TSH + free T4, serum 2023 024 SHAR Oseguera, [address], [address], [place], [address], 4 10:35:57 insulin, serum 2023 024 SHAR Oseguera, [address], [address], [place], [address], 4 10:36:01 lipid panel, serum 2023 024 SHAR Oseguera, [address], [address], [place], [address], 4 10:35:55 CMP, serum or plasma 2023 024 SHAR Oseguera, 2022 [address], [address], [place], [address], 4 10:35:58 CBC w/ auto diff 2023 024 SHAR Oseguera, 2022 [address], [address], [place], [address], 4 10:36:02 HbA1c (hemoglobin A1c), blood 2023 024 [facility], [address], [address] [address], [place], [address], 4 10:35:59 Referral None recorded. Procedures None recorded. Surgeries None recorded. Imaging None recorded. Medication Orders amoxicillin 875 mg tablet 2024 025 [facility] #[id number], [address] [place], [address], 5 10:24:53 albuterol sulfate HFA 90 mcg/actuati on aerosol inhaler 2023 024 [facility] #[id number], [address] [place], [address], 5 10:10:59 Patient TargetsNo targets recorded. Patient Instructions Encounter Date Encounter Id Patient Instructions Last Modified By Organization Details Last Modified Time 05/09/2024 [id number] A healthy lifestyle: care instructions Not available 05/30/2024 10:40:57 07/10/2024 [id number] A healthy lifestyle: care instructions Not available 07/10/2024 10:24:25 Reason for Referral None Reported. Results Created Date Observation Date Name Description Value Unit Range Abnormal Flag Note LastModifiedBy Organization Detail LastModifiedTime 03/25/2003/25/2024 pap, IG + HR HPV Pap, HPV negati ve Not Available Not Available 12:09:14 04/26/20 24 04/27/2024 LIPID PANEL W/ CHOL/ HDL RATIO cholesterol, total 199 mg/dL 100-19 9 Not Available [facility] ([facility]) [address] [facility] [address], [place], [address], 04/27/2024 10:35:55 04/26/20 24 04/27/2024 LIPID PANEL W/ CHOL/ HDL RATIO triglyceride s 61 mg/dL 0-149 Not Available [facility] ([facility]) [address] [facility] [address], [place], [address], 04/27/2024 10:35:55 04/26/20 24 04/27/2024 LIPID PANEL W/ CHOL/ HDL RATIO HDL cholesterol 56 mg/dL >39 Not Available [facility] ([facility]) [address] [place], [address], 04/27/2024 10:35:55 04/26/20 24 04/27/2024 LIPID PANEL W/ CHOL/ HDL RATIO VLDL cholesterol paulette 11 mg/dL 5-40 Not Available [facility] ([facility]) [address] [place], [address], 04/27/2024 10:35:55 04/26/2004/27/2024 LIPID PANEL W/ CHOL/ HDL RATIO LDL chol calc ([facility]) 132 mg/dL 0-99 above high normal Not Available [facility] ([facility]) [address] [facility] [address], [place], [address], 04/27/2024 10:35:55 04/26/2004/27/2024 LIPID PANEL W/ CHOL/ HDL RATIO T. chol/HDL ratio 3.6 ratio 0.0-4. 4 T. Chol/ HDL Ratio Men Women 1/2 Avg.R isk 3.4 3.3 Avg.R isk 5.0 4.4 2X Avg.R isk 9.6 7.1 3X Avg.R isk 23.4 11.0 Not Available [facility] ([facility]) [address] [place], [address], 04/27/2024 10:35:55 04/26/2004/27/2024 TSH+F REE T4 TSH 1.850 uIU/m L 0.450- 4.500 Not Available [facility] ([facility]) [address] [place], [address], 04/27/2024 10:35:57 04/26/2004/27/2024 TSH+F REE T4 T4,free(dire ct) 1.07 NG/dL 0.82-1 .77 Not Available [facility] ([facility]) [address] [place], [address], 04/27/2024 10:35:57 04/26/20 24 04/27/2024 COMP. METAB OLIC PANEL (14) glucose 96 mg/dL 70-99 Not Available [facility] ([facility]) [address] [place], [address], 04/27/2024 10:35:58 04/26/2004/27/2024 COMP. METAB OLIC PANEL (14) BUN 14 mg/dL 6-24 Not Available [facility] ([facility]) [address] [place], [address], 04/27/2024 10:35:58 04/26/20 24 04/27/2024 COMP. METAB OLIC PANEL (14) creatinine 0.78 mg/dL 0.57-1 .00 Not Available [facility] ([facility]) [address] [place], [address], 04/27/2024 10:35:58 04/26/20 24 04/27/2024 COMP. METAB OLIC PANEL (14) eGFR 94 mL/mi n/1.7 3 >59 Not Available [facility] ([facility]) [address] [place], [address], 04/27/2024 10:35:58 04/26/20 24 04/27/2024 COMP. METAB OLIC PANEL (14) BUN/creatini ne ratio 18 9-23 Not Available [facility] ([facility]) [address] [place], [address], 04/27/2024 10:35:58 04/26/20 24 04/27/2024 COMP. METAB OLIC PANEL (14) sodium 140 mmol/ L 134-14 4 Not Available [facility] ([facility]) [address] [place], [address], 04/27/2024 10:35:58 04/26/20 24 04/27/2024 COMP. METAB OLIC PANEL (14) potassium 4.4 mmol/ L 3.5-5. 2 Not Available [facility] ([facility]) [address] [place], [address], 04/27/2024 10:35:58 04/26/20 24 04/27/2024 COMP. METAB OLIC PANEL (14) chloride 106 mmol/ L 96-106 Not Available [facility] ([facility]) [address] [place], [address], 04/27/2024 10:35:58 04/26/20 24 04/27/2024 COMP. METAB OLIC PANEL (14) carbon dioxide, total 21 mmol/ L 20-29 Not Available [facility] ([facility]) [address] [place], [address], 04/27/2024 10:35:58 04/26/20 24 04/27/2024 COMP. METAB OLIC PANEL (14) calcium 9.3 mg/dL 8.7-10 .2 Not Available [facility] ([facility]) [address] [place], [address], 04/27/2024 10:35:58 04/26/20 24 04/27/2024 COMP. METAB OLIC PANEL (14) protein, total 6.5 g/dL 6.0-8. 5 Not Available [facility] ([facility]) [address] [facility] [place], [address], 04/27/2024 10:35:58 04/26/20 24 04/27/2024 COMP. METAB OLIC PANEL (14) albumin 4.1 g/dL 3.9-4. 9 Not Available [facility] ([facility]) [address] [facility] [place], [address], 04/27/2024 10:35:58 04/26/20 24 04/27/2024 COMP. METAB OLIC PANEL (14) globulin, total 2.4 g/dL 1.5-4. 5 Not Available [facility] ([facility]) [address] [place], [address], 04/27/2024 10:35:58 04/26/20 24 04/27/2024 COMP. METAB OLIC PANEL (14) bilirubin, total 0.4 mg/dL 0.0-1. 2 Not Available [facility] ([facility]) [address] [place], [address], 04/27/2024 10:35:58 04/26/20 24 04/27/2024 COMP. METAB OLIC PANEL (14) alkaline phosphatase 58 IU/L 44-121 Not Available [facility] ([facility]) [address] [place], [address], 04/27/2024 10:35:58 04/26/20 24 04/27/2024 COMP. METAB OLIC PANEL (14) AST (SGOT) 13 IU/L 0-40 Not Available [facility] ([facility]) [address] [place], [address], 04/27/2024 10:35:58 04/26/20 24 04/27/2024 COMP. METAB OLIC PANEL (14) ALT (SGPT) 9 IU/L 0-32 Not Available [facility] ([facility]) [address] [place], [address], 04/27/2024 10:35:58 04/26/2004/27/2024 HEMOG LOBIN A1C hemoglobin A1C 5.5 % 4.8-5. 6 Predi abete s: 5.7 - 6.4 Diabe gabriela: >6.4 Glyce rachael contr ol for adult s with diabe gabriela: <7.0 Not Available [facility] ([facility]) [address] [facility] [address], [place], [address], 04/27/2024 10:35:59 04/26/2004/27/2024 INSUL IN insulin 11.0 uIU/m L 2.6-24 .9 Not Available [facility] ([facility]) [address] [facility] [address], [place], [address], 04/27/2024 10:36:01 04/26/2004/27/2024 CBC WITH DIFFE RENTI AL/PL ATELE T WBC 5.2 x10e3 /uL 3.4-10 .8 Eff ectiv e Decem sanju 2023 profi angela [id number] 5 WBC will be made* * non-o rdera ble as a stand -michaelle e order code. Not Available [facility] ([facility]) [address] [facility] [address], [place], [address], 04/27/2024 10:36:02 04/26/20 24 04/27/2024 CBC WITH DIFFE RENTI AL/PL ATELE T RBC 4.36 x10e6 /uL 3.77-5 .28 Not Available [facility] ([facility]) [address] [facility] [address], [place], [address], 04/27/2024 10:36:02 04/26/20 24 04/27/2024 CBC WITH DIFFE RENTI AL/PL ATELE T hemoglobin 13.3 g/dL 11.1-1 5.9 Not Available [facility] ([facility]) [address] [facility] [address], [place], [address], 04/27/2024 10:36:02 04/26/2004/27/2024 CBC WITH DIFFE RENTI AL/PL ATELE T hematocrit 39.5 % 34.0-4 6.6 Not Available [facility] ([facility]) [address] [facility] [address], [place], [address], 04/27/2024 10:36:02 04/26/2004/27/2024 CBC WITH DIFFE RENTI AL/PL ATELE T MCV 91 fL 79-97 Not Available [facility] ([facility]) [address] [facility] [address], [place], [address], 04/27/2024 10:36:02 04/26/20 24 04/27/2024 CBC WITH DIFFE RENTI AL/PL ATELE T MCH 30.5 pg 26.6-3 3.0 Not Available [facility] ([facility]) [address] [facility] [address], [place], [address], 04/27/2024 10:36:02 04/26/2004/27/2024 CBC WITH DIFFE RENTI AL/PL ATELE T MCHC 33.7 g/dL 31.5-3 5.7 Not Available [facility] ([facility]) [address] [place], [address], 04/27/2024 10:36:02 04/26/20 24 04/27/2024 CBC WITH DIFFE RENTI AL/PL ATELE T RDW 11.9 % 11.7-1 5.4 Not Available [facility] ([facility]) [address] [place], [address], 04/27/2024 10:36:02 04/26/20 24 04/27/2024 CBC WITH DIFFE RENTI AL/PL ATELE T platelets 248 x10e3 /uL 150-45 0 Not Available [facility] ([facility]) [address] [facility] [address], [place], [address], 04/27/2024 10:36:02 04/26/2004/27/2024 CBC WITH DIFFE RENTI AL/PL ATELE T neutrophils 64 % notest ab. Not Available [facility] ([facility]) [address] [place], [address], 04/27/2024 10:36:02 04/26/20 24 04/27/2024 CBC WITH DIFFE RENTI AL/PL ATELE T lymphs 25 % notest ab. Not Available [facility] ([facility]) [address] [facility] [address], [place], [address], 04/27/2024 10:36:02 04/26/20 24 04/27/2024 CBC WITH DIFFE RENTI AL/PL ATELE T monocytes 8 % notest ab. Not Available [facility] ([facility]) [address] [facility] [address], [place], [address], 04/27/2024 10:36:02 04/26/20 24 04/27/2024 CBC WITH DIFFE RENTI AL/PL ATELE T eos 2 % notest ab. Not Available [facility] ([facility]) [address] [facility] [address], [place], [address], 04/27/2024 10:36:02 04/26/20 24 04/27/2024 CBC WITH DIFFE RENTI AL/PL ATELE T basos 1 % notest ab. Not Available [facility] ([facility]) [address] [facility] [address], [place], [address], 04/27/2024 10:36:02 04/26/2004/27/2024 CBC WITH DIFFE RENTI AL/PL ATELE T neutrophils (absolute) 3.4 x10e3 /uL 1.4-7. 0 Not Available [facility] ([facility]) [address] [facility] [address], [place], [address], 04/27/2024 10:36:02 04/26/20 24 04/27/2024 CBC WITH DIFFE RENTI AL/PL ATELE T lymphs (absolute) 1.3 x10e3 /uL 0.7-3. 1 Not Available [facility] ([facility]) [address] [place], [address], 04/27/2024 10:36:02 04/26/20 24 04/27/2024 CBC WITH DIFFE RENTI AL/PL ATELE T monocytes(ab solute) 0.4 x10e3 /uL 0.1-0. 9 Not Available [facility] ([facility]) [address] [place], [address], 04/27/2024 10:36:02 04/26/20 24 04/27/2024 CBC WITH DIFFE RENTI AL/PL ATELE T eos (absolute) 0.1 x10e3 /uL 0.0-0. 4 Not Available [facility] ([facility]) [address] [facility] [address], [place], [address], 04/27/2024 10:36:02 04/26/2004/27/2024 CBC WITH DIFFE RENTI AL/PL ATELE T baso (absolute) 0.0 x10e3 /uL 0.0-0. 2 Not Available [facility] ([facility]) [address] [place], [address], 04/27/2024 10:36:02 04/26/20 24 04/27/2024 CBC WITH DIFFE RENTI AL/PL ATELE T immature granulocytes 0 % notest ab. Not Available [facility] ([facility]) [address] [facility] [address], [place], [address], 04/27/2024 10:36:02 04/26/20 24 04/27/2024 CBC WITH DIFFE RENTI AL/PL ATELE T immature grans (abs) 0.0 x10e3 /uL 0.0-0. 1 Not Available [facility] ([facility]) [address] [place], [address], 04/27/2024 10:36:02 Result Notes None recorded. Problems Name Problem SNOMED Code Status Onset Date Resolution Date Notes Provider Name and Address Organization Details Recorded Time Body mass index 30+ - obesity 238600662 Active 024 LANG Hammond Attn: Accounting ,[address] [facility], [place], [address] , [facility] 10:40:45 Obesity 828096680 Active 024 LANG Hammond Attn: Accounting ,[address] , [place], [address] , [facility] 10:40:55 Problem Notes None recorded. Procedures Surgical History Date Name Laterality Status Provider Name and Address Organization Details Recorded Time craniotomy completed Norris Rinaldi MA [facility] 03/03/2024 14:12:09 section completed Norris Rinaldi MA [facility] 03/03/2024 14:12:14 Hernia Repair completed Norris Rinaldi MA [facility] 03/03/2024 14:12:23 ovarian ablation completed Norris Rinaldi MA [facility] 03/03/2024 14:12:54 D & c after delivery completed Norris Rinaldi MA [facility] 03/03/2024 14:13:05 Imaging Results None recorded. Procedure Notes None recorded. Medical Equipment None Reported. Allergies Allergen ID Allergen Name Allergen Category Reaction Reaction Severity Criticality Documentation Date Start Date Code Code System Note Provider Name and Address Organization Details Recorded Time 17730805 corn extract food,medi cation Not available Not available Not available 03/03/2024 64528 08 RxNorm Norris Rinaldi MA null, [facility] 14:08:36 Medications Name Sig Start Date Stop Date Status Note LastModified by Organization Details LastModified Time medroxyprog esterone 10 mg tablet TAKE 1 TABLET BY MOUTH DAILY 03/03 completed Not Available Not Available Not Available amoxicillin 875 mg tablet TAKE 1 TABLET BY MOUTH EVERY 12 HOURS active Not Available Not Available No t Available meclizine 25 mg tablet TAKE 2 TABLETS(5 0MG) BY MOUTH TWICE A DAY NEEDED FOR DIZZINESS active Not Available Not Available No t Available sertraline 25 mg tablet TAKE 1 TABLET BY MOUTH EVERY DAY active Not Available Not Available No t Available methylpredn isolone 4 mg tablets in a dose pack TAKE 6 TABLETS ON DAY 1 DIRECTED ON PACKAGE AND DECREASE BY 1 TAB EACH DAY FOR A TOTAL OF 6 DAYS active Not Available Not Available No t Available albuterol sulfate HFA 90 mcg/actuati on aerosol inhaler Inhale 2 puffs every 4-6 hours by inhalatio n route as needed. 07/10 completed Not Available Not Available Not Available naproxen 500 mg tablet TAKE 1 TABLET BY MOUTH TWICE A DAY NEEDED FOR PAIN active Not Available Not Available No t Available amoxicillin 875 mg-tiennathaniel maldonado clavulanate 125 mg tablet Take 1 tablet every 12 hours by oral route. 07/10 completed Not Available Not Available Not Available Vitals Date Recorded Body height Body mass index (BMI) Body weight Respiratory rate Oxygen saturation Oxygen saturation in Arterial blood by Pulse oximetry Heart rate Systolic And Diastolic Provider Name and Address Organization Details Last Updated DateTime 5 172.72 cm 30 kg/m2 79613.7 g 18 /min 99 % 99 % 87 /min 118/78 mm[Hg] Norris Rinaldi MA [facility] 5 10:14:26 Date Recorded Systolic And Diastolic Systolic And Diastolic Provider Name and Address Organization Details Last Updated DateTime 03/03/2024 104/70 mm[Hg] 108/80 mm[Hg] LANG Hammond Attn: Accounting,[address] [place], [address], [facility] 03/03/2024 14:36:21 Date Recorded Respiratory rate Body height Body mass index (BMI) Body weight Oxygen saturation Oxygen saturation in Arterial blood by Pulse oximetry Heart rate Systolic And Diastolic Provider Name and Address Organization Details Last Updated DateTime 4 18 /min 172.72 cm 29.8 kg/m2 71076.3 9 g 98 % 98 % 80 /min 122/82 mm[Hg] Norris Rinaldi MA [facility] 4 14:16:34 Date Recorded Respiratory rate Body temperature Provid er Name and Address Organization Details Last Updated DateTime 05/09/2024 18 /min 98 [degF] LANG Hammond Attn: Accounting,[address] [place], [address], [facility] 05/09/2024 12:55:42 Date Recorded Body height Body mass index (BMI) Body weight Heart rate Oxygen saturation Oxygen saturation in Arterial blood by Pulse oximetry Systolic And Diastolic Provider Name and Address Organization Details Last Updated DateTime 4 172.72 cm 30.3 kg/m2 89966.9 6 g 78 /min 97 % 97 % 108/70 mm[Hg] Fransisca Jenkins MA PA - [facility] 4 12:39:13 Social History Question Answer Notes LastModified by Organizat ion Details LastModified Time Tobacco Smoking Status Never Smoker Norris RUBA Rinaldi null, [place] 03/03/2024 14:11:43 Do You Have An Advance Directive? No States That She Has A Trust Information not available 03/03/2024 Are You Blind Or Do You Have Difficulty Seeing? No Readers Information not available 03/03/2024 What Is Your Level Of Caffeine Consumption? Moderate Information not available 03/03/2024 In The 14 Days Before Symptom Onset, Have You Had Close Contact With A Laboratory-confir med COVID-19 While That Case Was Ill? No Information not available 03/03/2024 In The 14 Days Before Symptom Onset, Have You Had Close Contact With A Person Who Is Under Investigation For COVID-19 While That Person Was Ill? No Information not available 03/03/2024 Have You Been To An Area Known To Be High Risk For COVID-19? No Information not available 03/03/2024 Are You Deaf Or Do You Have Serious Difficulty Hearing? No Information not available 03/03/2024 What Type Of Diet Are You Following? REGULAR Information not available 03/03/2024 Are There Any Guns Present In Your Home? No Information not available 03/03/2024 What Was The Date Of Your Most Recent Tobacco Screening? 07/10/2024 Information not available 07/10/2024 Do You Use Your Seat Belt Or Car Seat Routinely? Yes Information not available 03/03/2024 Do You Have Smoke And Carbon Monoxide Detectors In Your Home? Yes Information not available 03/03/2024 Do You Use Sunscreen Routinely? Yes Information not available 03/03/2024 Has Tobacco Cessation Counseling Been Provided? No Information not available 07/10/2024 Sex: Female Functional Status Question Answer Note LastModified by Organizat ion Details LastModified Time Do you use any illicit or recreational drugs? No Information not available 03/03/2024 Do you or have you ever used any other forms of tobacco or nicotine? No Information not available 03/03/2024 What is your level of alcohol consumption? Moderate Information not available 03/03/2024 Are you currently employed? Yes Information not available 03/03/2024 Are you able to care for yourself? 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 Occasional Information not available 03/03/2024 Mental Status None recorded. Family History Relationship Description Onset Age of this Age Resolved Age Notes LastModified by Organization Details LastModified Time Father Malignant neoplastic disease [email or web address] Not available 2023 14:10:43 Medical History Condition Response Coronary Artery Disease N Other N Atrial Fibrillation N High Blood Pressure N Kidney or Bladder Problems N Thyroid Problems N GI Problems N Depression N COPD N Blood Clots N Have you had a mammogram in the last yea r? N Skin Problems Y Anemia N Heart Attack ([place]) N Anxiety Disorder Y Diabetes N Muscle, Joint, or Bone Problems N Seizures/Epilepsy N Have you had a colonoscopy in the last 1 0 years? N Acid Reflux (GERD) N Cancer Y Stroke N Asthma N Allergies N Have you had a PSA blood test in the las t year? N High Cholesterol N Hepatitis N Liver Disease N Headaches N Heart Failure N Osteoporosis N Gynecological History Statement/Question Response Menses Monthly Y Current Control Method None Flow Moderate Date of LMP 07/02/2024 LMP Approximate Obstetrics History GPAL:G 2 P 2 0 0 2 Type Value Full Term 2 Induced 0 Spontaneous 0 Premature 0 Living 2 Ectopics 0 Total 2 Immunizations Vaccine Type Date Status Note Provider Nam e and Address Organization Details Recorded Time Influenza, injectable,quadriv alent, preservative free, pediatric 2 completed Norris Rinal[place], [place] - [facility] 07/09/2024 11:33:07 COVID-19, mRNA, LNP-S, PF, 30 mcg/0.3 mL dose 1 completed Norris Rinal[place] [facility] 07/09/2024 11:33:07 COVID-19, mRNA, LNP-S, PF, 30 mcg/0.3 mL dose 1 completed Norris Rinal[place] [facility] 07/09/2024 11:33:07 COVID-19, mRNA, LNP-S, PF, 30 mcg/0.3 mL dose, hien-sucrose 2 completed Norris Rinaldi [place], [place] - [facility] 07/09/2024 11:33:07 Influenza, split virus, trivalent, PF 4 completed LANG Hammond Attn: Accounting,[address] [place], [address], [facility] 04/25/2024 17:16:29 Past Encounters Encounter ID Performer Location Encounter Start Date Encounter Closed Date Diagnosis/Indication Diagnosis SNOMED-CT Code Diagnosis ICD10 Code Diagnosis Note [id number] Ramsey Quezada MD [facility] [place] [address] [place] [address] 03/03/2024 14:02:36 03/03/2024 14:48:56 Body mass index 25-29 - overweight 389398177 Z68.29 Fasting insulin level ordered [facility] examination 753362796 Z00.00 Wellness exam completed with routine fasting labs ordered Cholesterol screening 27 7176213 Z13.220 Fasting lipid panel ordered Diabetes m ellitus screening 563251878 Z13.1 Annual diabetes screen ordered Thyroid di sorder screening 560810511 Z13.29 Routine thyroid function testing ordered [id number] Ramsey Quezada MD [facility] [place] [address] [place] [address] 04/25/2024 14:06:22 04/30/2024 09:38:13 Administration of influenza vaccine 94264722 Z23 [id number] Ramsey Quezada MD [facility] [place] [address] [place] [address] 05/09/2024 12:33:40 05/09/2024 12:59:00 Body mass index 30+ - obesity 409369925 Z68.30 Viral syndrome 708374635 B34.9 Supportive care at this time. She may need a recheck a home COVID test tomorrow Fatigue 36408220 R53.83 Rest and fluids Cough 40258558 R05.9 Prescripti on for albuterol inhaler to help with cough and bronchocon striction Obesity 253713026 E66.9 [id number] Ramsey Quezada MD [facility] - [place] [address] [place] [address] 07/10/2024 10:03:10 07/10/2024 11:42:02 Obesity 516214242 E66.9 Body mass index 30+ - obesity 883277906 Z68.30 Otalgia of left ear 1010 739242 H92.02 If symptoms progress patient should start Amoxil 875 twice daily for 7 days. She wants to hold off to see if she can improve without any antibiotic . There is just slight erythema in the Southern hemisphere of the TM which may be from aggressive Debrox wax removal Dysfunctio n of left eustachian tube [id number] 373450 H69.92 Patient may use Sudafed PE over-the-c ounter in nasal spray to help decongest the ears Health Concerns Section Related Observation LastModified by Organization Detai ls LastModified Time None Recorded Concern Status LastModified by Organization Details LastModified Time None Recorded Advance Directives Directive N: States that she has a Ryan st Payers Insurance Date Sequence Insurance Name Policy Number Policy Aquino Covered Member ID Aquino Member ID Guarantor Name 11/10/2024 1 [facility] [id number] Afshan Hill [id number] Afshan Hill Notes Date Note Type Note Provider Name and Address Organization Details Recorded Time 03/03/2024 text/html Patient is here for annual wellness exam and would like to discuss some perimenopausal changes she is having with her menstrual cycles. She was just curious on our opinion with hormone therapy. 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 For associated symptoms, patient reportschest painandfatiguebut reportsno shortness of breath,no wheezing,no sweats,no fever,no vomiting,no rash, andno nausea. For location, patient reportschest. For severity, patient reportsmild. For modifying factors, patient reportsotc medication. For duration, (7-10 days). For context, (travel to [place]).weakness, fatigue, hurt to breathe with reactive cough, today breathing deeper but achy. covid testing at home negative last night and today. LANG Hammond Attn: Accounting,[address] [place], [address], [facility] 05/30/2024 10:41:12 07/10/2024 text/html EaracheReported by PatientHPIFor location, patient reportsleft. For quality, patient reportsaching. For severity, patient reportsimprovingandmil d. For timing, patient reportsbetter. For context, patient reportsno sick contacts. For modifying factors, (she removed a lot of wax out of the left ear canal with debrox). LANG Hammond Attn: Accounting,[address] [place], [address], [facility] 07/10/2024 10:25:17 OBGyn Episode No OBEpisode recorded.
--- OUTSIDE RECORDS SUMMARY | 2024-12-25 14:17 | XMS_ITS | Clinical Summary ---
Author Organization [facility] Address [address] [place] [address] Phone Care Team Providers Care Health Assessment And Treatment Teacher Name Role Phone Ebony Mendez Primary Care Provider [phone] Allergies No known active allergies Medications clindamycin phosphate (CLEOCIN) 1 % Solution Apply to the affected area(s) on thighs twice daily as needed. 60 mL 2 2022 Active HYDROcodone-julia taminophen (NORCO) 5-325 mg tablet Take 1-2 tablets by mouth every 6 hours as needed for pain. 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 Gender Identity Not on file Sexual Orientation Not on file Last Filed Vital Signs Vital Sign Reading Time Taken Comments Blood Pressure 110/74 10/03/2017 8:57 AM CDT Pulse - - Temperature - - Respiratory Rate - - Oxygen Saturation - - Inhaled Oxygen Concentration - - Weight 69.2 kg (152 lb 9.6 oz) 10/03/2017 8:57 A M CDT Height 172.7 cm (5' 8) 10/03/2017 8:57 AM CDT Body Mass Index 23.2 10/03/2017 8:57 AM CDT Plan of Treatment Health Maintenance Due Date Last Done Comments DTAP/TDAP/TD VACCINES (1 - Tdap) 1994 HEPATITIS B VACCINES (1 of 3 - 19+ 3-dose series) 07/05 HPV/Cotest (21-29) 1996 CERVICAL CANCER SCREENING 2005 HPV/Cotest (30-65) 2005 PAP SMEAR 2005 BREAST CANCER SCREENING 2015 COLORECTAL SCREENING 2020 Colorectal Cancer Screening 2020 FIT-DNA Q 3 years 2020 FIT/FOBT Q 1 year 2020 Flex Sig/CT Colonography Q 5 years 2020 INFLUENZA VACCINE (#1) [address] [place] [id number] [place] BLUE ACCESS/TRUE BLUE PPO RX [employer] RX Member Subscriber Plan / Payer (Ef fective 2022-Present) Name:Afshan Hill Relation to Subscriber:Not on file Name:Afshan Hill Subscriber ID:Not on file Date of :1975 Payer ID:Not on file Group ID:[id number] Type:RX Commercial Address: [address] Care Teams Health Assessment And Treatment Teacher Relationship Specialty Start Date End Date Ebony Mendez PA PCP - General Physician Family Sociologist 10/03/17
--- OUTSIDE RECORDS SUMMARY | 2024-12-25 14:17 | XMS_ITS | Encounter Summary ---
Author Organization [facility] Address [address] [place] [address] Care Team Providers Care Tinning Equipment Tender Name Role Phone Unavailable Primary Care Provider Unavailabl e Encounter Details Date Type Department Care Team (Late st Contact Info) Description 12/16/2020 Lab Requisition [facility] [address] [facility], [facility] [place] [id number] Solis Lang MD [address] [facility] [address] [place] [address] Social History Tobacco Use Types Packs/Day Years Used Date Smoking Tobacco: Never Assessed Comments Unknown Sex and Gender Information Value Date Recorded Sex Assigned at Not on file Legal Sex Female 7:40 AM REGIONAL FACILITIES SPECIALIST Gender Identity Not on file Sexual Orientation Not on file documented as of this encounter Plan of Treatment Not on file documented as of this encounter Procedures Procedure Name Priority Date/Time Associated Diagnosis Comments DERMATOPATHOLOGY Routine 12/14/2020 3:33 AM CDT documented in this encounter Results * DERMATOPATHOLOGY (12/14/2020 3:33 AM CDT) Case Report Dermatopathology Report Case: [id number] Authorizing Provider: Solis Lang MD Collected: 12/14/2020 03:33 AM Ordering Location: [facility] Received: 12/16/2020 06:34 AM Pathologist: Laina Najera MD Specimen: Skin, left thigh 4:44 PM CDT DERMATOPATHOLOGY LABORATORY Final Diagnosis Specimen A. SKIN, left thigh: SEBORRHEIC KERATOSIS, INFLAMED (L82.0) 4:44 PM CDT DERMATOPATHOLOGY LABORATORY at 1644 CDT Clinical History ISK vs SCCA. Path# [id number]. 1 4:44 PM CDT DERMATOPATHOLOGY LABORATORY Gross Description Specimen A: Received is one formalin filled container labeled with the patient's name and designated left thigh. The specimen consists of a shave biopsy measuring [id number]. Jar 0. 1 4:44 PM CDT DERMATOPATHOLOGY LABORATORY Microscopic Description Specimen A. SKIN, left thigh: There is hyperkeratosis, parakeratosis, papillomatosis, and acanthosis of the epidermis. There is a lymphohistiocytic infiltrate within the papillary dermis that is focally lichenoid. 1 4:44 PM CDT DERMATOPATHOLOGY LABORATORY Disclaimer An external and internal positive and negative controls are appropriate for the histochemical, immunohistochemical and immunofluorescence stain(s) in this case (if any), except where stated explicitly. The performance characteristics of the stain(s) cited in this report were developed and its performance characteristic determined by the Dermatopathology Laboratory at [facility], directed by Dr. Fernie Rousseau. These tests need not be, and therefore are not, approved by the [place] Food and Drug Administration. The tests are used for clinical purposes. Billing Codes Specimen Charges Stain Charges 70288 1 1 4:44 PM CDT DERMATOPATHOLOGY LABORATORY Embedded Images 1 4:44 PM CDT DERMATOPATHOLOGY LABORATORY Pathology/Cytolo gy TISSUE SPECIMEN FROM SKIN / Unknown 12/14/2020 3:33 AM CDT 12/16/2020 6:34 AM CDT us Solis Lang MD LAB - PATHOLOGY/CYTOLOGY ORDER PIEDAD Final Result DERMATOPATHOLOGY LABORATORY [facility] - Department of Dermatology [address], [address] [phone] documented in this encounter Visit Diagnoses Not on filedocumented in this encounter
--- OUTSIDE RECORDS SUMMARY | 2024-12-25 14:17 | XMS_ITS | Patient Health Record ---
Author Organization [facility] [place] ([address]) Address [address] [facility] [address] [place] [address] Care Team Providers Care Revenue Research Analyst Name Role Phone Ebony Mendez Primary Care Provider Juan Miguel Roberts Unavailable [phone] Allergies No Known Allergies Reason For Referral No Information Medications Medication SIG (Take, Route, Frequency, Duration) Notes Start Date End Date Status XYZAL 5 mg 1 tablet PO daily; Duration: 30 10/12/2021 Active AZELASTINE HYDROCHLORIDE NASAL 137 mcg/inh 2 spray(s) intranasally 2 times a day; Duration: 30 day(s) 10/12/2021 Active Vitamin D3 25 MCG (1000 UT) 1 cap(s) orally once a day; Duration: 30 day(s) 10/12/2021 Active Magnesium Chloride *Please revie w and pick correct strength-formulati on from [employer] options. If intended option is not shown, discontinue and re-order from Quick Search* 10/12/2021 Active Azelastine HCl 137 MCG/SPRAY 2 spray(s) intranasally 2 times a day; Duration: 30 day(s) 10/12/2021 Active Xyzal Allergy 24HR 5 MG 1 tablet PO daily; Duration: 30 10/12/2021 Active VITAMIN D3 25 mcg 1 cap(s) orally once a day; Duration: 30 day(s) 10/12/2021 Active MAGNESIUM CHLORIDE 10/12/2021 Active Social History Tobacco Use: Social History Observation Description Date Details (start date - stop date) Never Smoker NA - NA Smoking Smart Form: Question Answer Notes Are you a: never smoker Section Notes: 1 dog in the home, 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 Problems Problem Type SNOMED Code ICD Code Onset Dates Problem Status W/U Status Risk Notes Problem Shortness of breath (035026710) Shortness of breath (R06.02) Active confirmed Problem Chronic allergic conjunctivitis (93543095) Other chronic allergic conjunctivitis (H10.45) Active confirmed Problem Allergic rhinitis caused by pollen (disorder) (97601071) Allergic rhinitis due to pollen (J30.1) Active confirmed Problem Allergic rhinitis (71845644) Other allergic rhinitis (J30.89) Active confirmed Problem Allergic rhinitis caused by pollen (disorder) (32851114) Allergic rhinitis due to pollen (J30.1) Active confirmed Problem Allergic rhinitis caused by animal hair and dander (678732093928407) Allergic rhinitis due to animal (cat) (dog) hair and dander (J30.81) Active confirmed Problem Food allergy (143051181) Allergy to other foods (Z91.018) Active confirmed Plan Of Treatment No Information Insurance Providers Payer Name Payer Address Payer Phone Subscriber Number Group Number Insured Name Patient Relationship to Insured Coverage Start Date Coverage End Date [facility] Choice Plus [address] [address] [place] [address] [id number] Afshan Hill Self - patient is the insured Medical (General) History Medical History History ICD Code Chronic rhinitis J31.0 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
== END 2024-12-25 14:06 | disposition home or self-care (01) ==
LOC: ANHIMG 14:08
PROVIDERS: PCP Physician Assistant; Visit Provider Obstetrics & Gynecology
DX: Z12.31 Encounter for screening mammogram for malignant neoplasm of breast (principal); R92.8 Other abnormal and inconclusive findings on diagnostic imaging of breast
CPT/HCPCS: 77063; 77067

== ENCOUNTER 2025-01-19 13:06 | Outpatient (CLI) | payer OTHER, SELFPAY ==
--- NOTE | ~2025-01-19 | MM_ITS ---
EXAMINATION: MM diagnostic jose RT w ade HISTORY: Right breast mammographic calcifications TECHNIQUE: Spot magnification images of the right breast were performed and synthetic 2-D images were generated. CAD analysis was submitted and interpreted. COMPARISON: 12/25/2024, 08/20/2023 BREAST PARENCHYMAL COMPOSITION:Dense: The breasts are extremely dense, which lowers the sensitivity o f mammography. FINDINGS: Spot magnification views demonstrate a few punctate microcalcifications. No suspicious or p leomorphic microcalcifications are seen. No mass lesion or distortion seen. IMPRESSION: No mammographic evidence for malignancy. Benign-appearing microcalcifications, as above. BI-RADS Category 2: Benign finding(s). Reviewed, dictated and finalized at location M.
--- OUTSIDE RECORDS SUMMARY | 2025-01-19 13:59 | XMS_ITS | Clinical Summary ---
Author Organization [facility] Address [address] [place] [address] Phone Care Team Providers Care Heat Treat Furnace Operator Name Role Phone Ebony Mendez Primary Care Provider [phone] Allergies No known active allergies Medications clindamycin [...] on file Legal Sex Female 8:45 AM PHLEBOTOMY TECH Gender Identity Not on file Sexual Orientation [...] INFLUENZA VACCINE (#1) [address] [place] [id number] BC BLUE ACCESS/TRUE BLUE PPO RX [employer] RX Member Subscriber Plan / Payer (Ef fective 2022-Present) Name:Afshan Hill Relation to Subscriber:Not on file Name:Afshan Hill Subscriber ID:Not on file Date of :1975 Payer ID:Not on file Group ID:[id number] Type:RX Commercial Address: [address] Care Teams Heat Treat Furnace Operator Relationship Specialty Start Date End Date Ebony Mendez PA PCP - General Physician Sand Blaster 10/03/17
--- OUTSIDE RECORDS SUMMARY | 2025-01-19 14:00 | XMS_ITS | Clinical Summary ---
Author Organization [facility] Address [address] [place] [address] Care Team Providers Care Glaze Carrier Name Role Phone Valeria Bailey MD Unavailable [phone] Ebony Mendez Primary Care Pr ovider [...] Orders Only [facility] [address] [place] [address] Josh Ronquillo MD PhD 11/14/2024 Orders Only [facility] [address] [place] [address] Josh Ronquillo MD PhD Meningioma (HCC) 11/13/2024 Orders Only [facility] [address] [facility] [address], [address] [place] [address] Josh Ronquillo MD PhD Meningioma (HCC) (Primary Dx) from Last 3 Months Immunizations Immunization Administration [...] Comments Blood Pressure 119/83 07/30/2024 11:41 AM TRANSFER MACHINE OPERATOR Pulse 73 07/30/2024 11:41 AM TRANSFER MACHINE OPERATOR Temperature 36.7 C (98 F) 07/30/2024 11:41 AM TRANSFER MACHINE OPERATOR Respiratory Rate 18 07/30/2024 11:41 AM TRANSFER MACHINE OPERATOR Oxygen Saturation 100% 07/30/2024 11:41 AM TRANSFER MACHINE OPERATOR Inhaled Oxygen Concentration - - Weight 89.4 kg (197 lb) 07/30/2024 11:41 AM TRANSFER MACHINE OPERATOR Height 172.7 cm (5' 8) 07/30/2024 11:41 AM TRANSFER MACHINE OPERATOR Body Mass Index 29.95 07/30/2024 11:41 AM TRANSFER MACHINE OPERATOR Plan of Treatment Health Maintenance Due Date [...] PM CDT Narrative 11/21/2024 4:12 PM CDT EPIC results best viewed via link to PDF [facility] Department of Pathol [address] [place] [address] Patient Information Name: YUAN HILL Gender: F : 1975 (Age: 49) Tissue: FFPE FISH Visit Information Hospital #: [id number] Facility: [facility] Service: [facility] Location: [facility] Specimen Information: Culture #: [id number] Date Collected: 11/14/2024 Date Accessioned: 11/20/2024 Date Ordered: 11/19/2024 Physician(s): Josh Ronquillo M.D. Processing: FFPE FISH - brain, left parietal cranial mass Indication: The patient is a 49-year-old woman with history of an atypical meningioma, resected in 2017, who undergoes yearly MRI monitoring at [facility]. Specimen Quality: Adequate FISH: FFPE CLINICAL REPORT PARAFFIN EMBEDDED FISH Fluorescence In-situ hybridization (FISH) Results: Specimen # [id number] Case # [id number] POSITIVE - FISH result for loss of 22q NEGATIVE - FISH result for 1p36 deletion NEGATIVE - FISH result for homozygous deletion of CDKN2A nuc emily (EWSR1)x1[118/200] nuc emily (1p36,1q25)x2[125/200] nuc emily (HOMY2Kn2~4,CEP9x3~4)[27/200] Chromosome analysis and Fluorescence In Situ Hybridization (FISH) analysis are performed using the [employer] Cytovision Imaging System. Comments EWSR1-BA for copy number of 22 Fluorescence in situ hybridization (FISH) was performed utilizing a commercial probe for EWSR1-BA on 22q12 ([employer], [place], [place]) to evaluate for copy number of chromosome 22. In this particular case, a loss of 22q was noted in 59% of the 200 interphase nuclei examined utilizing a manual scoring system. This test was developed and its performance characteristics determined by [facility]. It has not been cleared or approved by the FDA. The laboratory is regulated under CLIA as qualified to perform high-complexity testing. This test is used for clinical purposes. It should not be regarded as investigational or for research. 1p FISH Fluorescence in situ hybridization (FISH) was performed on paraffin-embedded tissue with locus-specific commercial probes localizing to 1p36 and 1q25 ([employer], [place], [place]). In this particular case, there were normal dosages (2 copies) of both 1p and 1q noted in the majority of the 200 interphase nuclei examined utilizing a manual scoring system. There was no evidence of 1p deletion. This test was developed and its performance characteristics determined by [facility]. It has not been cleared or approved by the FDA. The laboratory is regulated under CLIA as qualified to perform high-complexity testing. This test is used for clinical purposes. It should not be regarded as investigational or for research. CDKN2A FISH FISH was performed utilizing a commercial centromeric-enumerating probe for chromosome 9 (CEP9) combined with locus-specific probe for CDKN2A ([employer], [place], [place]). 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 There was no evidence of CDKN2A homozygous deletion. This test was developed and its performance characteristics determined by [facility]. It has not been cleared or [...] and Signed Out By Janine Solano MD, FACMG, FAAP Date Reported: 11/21/2024 Professor, Division of Genomic & Molecular Pathology Josh Ronquillo MD PhD LAB GENETIC TESTIN G Final Result * Surgical pathology (11/14/2024 9:17 AM CDT) Tissue (Miscellaneous) 11/14/2024 9:17 AM CDT 11/14/2024 9:17 AM CDT Narrative [facility] - 12/02/2024 9:23 AM CDT EPIC results best viewed via link to PDF [facility] Consult Service [address], [address], [place] [address] Note to Patients: This report [...] SURGICAL PATHOLOGY REPORT * Consult Report * [facility] is providing an additional review of previously collected tissue. FINAL WITH ADDENDUM Patient Name: YUAN HILL Address: [address] [place] [address], [place] [address] Gender: F : 1975 (Age: 49) Hospital #: [id number] Patient Type: [facility] Location: UNKNOWN Taken: 11/14/2024 Received: 11/14/2024 Accessioned: 11/18/2024 Reported: 12/02/2024 Physician(s): Josh Ronquillo M.D. [facility] Department of Pathology [address] [place] [address] P: [phone] F: [phone] Diagnosis: Consult material received from [place], [place] (OSC: [id number]; 10/26/2016) A. 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 Materials Received: Received for review is one stained slide and fifteen unstained slides labeled [id number], accompanied by a corresponding pathology report. The material originates from [place], [place]. Selected slide(s) may be digitally scanned for our files, and all materials are returned to the referring institution, along with a copy of our final report. Addenda/Procedures Addendum Ordered: 11/24/2024 Status: Signed Out Addendum Complete: 11/24/2024y: Elaine Johnson MD, PhDAddendum Signed Out: 12/02/2024 Addendum Comment Please see below for FISH testing performed by [facility] and reported on 11/22/2024. By this signature, I attest that the above diagnosis is based upon my personal examination of the slides(and/or other material indicated in the diagnosis). Elaine Johnson MD, PhDReport Electronically Reviewed and Signed Out By Elaine Johnson MD, PhD 12/02/2024 09:25:45 Any testing required for diagnostic purposes was performed in the Department of Pathology and Immunology at [facility], [address] [place] [address]. [place] [address] CLIA # [id number] The performance characteristics of the testing cited in this report (if any) were determined by the [facility] Department of Pathology and Immunology [facility], as part of an ongoing manufacturing quality inspector program and in compliance with federally mandated regulations drawn from the Clinical Laboratory Improvement Act of 1988 (CLIA ). Some of these tests rely on the use of analyte specific reagents (ASR) and are subject to specific labeling requirements by the US Food and Drug Administration. Such diagnostic tests may only be performed in a facility that is certified by the Department of Health and Human Services as a high complexity laboratory under CLIA 88. The FDA has determined that such clearance or approval is not necessary. ASRs should not be regarded as investigational or for research. ASRs were developed and the performance characteristics determined by the [facility], [facility] Department of Pathology and Immunology. It has not been cleared or approved by the U.S. Food and Drug Administration. Any test designated as LDT was developed and its performance characteristics determined by [facility]. It has not been cleared or approved by the FDA. This test is used for clinical purposes and should not be regarded as investigational or for research. Report images and/or scanned reports, if included, only viewable in PDF version of report. Josh Ronquillo MD PhD LAB PATHOLOGY TRUDY TRAN Final Result Performing Organization Address City/State/[facility] Co de Phone Number [facility] [address] [address] from Last 3 Months Insurance [facility] H[facility]/PPO Address: [facility] [address] [place] [address] [facility] CHO[facility]US [facility] H[facility]/PPO Address: [place] [phone] [facility] CHOICE [employer]US [facility] H[facility]/PPO Address: [place] [phone] Care Teams Glaze Carrier Relationship Specialty Start Date End Date Ebony Mendez PA PCP - General 01/13/19 Valeria Bailey MD Referring Physician Neurology 01/23/18 Josh Ronquillo MD PhD [address] [facility] [address] [place] [address] Medical Oncologist/Director Of Resource Development Medical Oncology 08/03/21
--- OUTSIDE RECORDS SUMMARY | 2025-01-19 14:00 | XMS_ITS ---
Author Organization [facility] [place] ([address]) Address [address] [place] [address] Care Team Providers Care Internal Control Specialist Name Role Phone Ebony Mendez Primary Care Provider Unavailab Juan Miguel Jaffe Unavailable [phone] [facility], Provider Unavailable Unavailab le REASON FOR VISIT [facility] Conversion Encounter Medications Medication SIG (Take, Route, Frequency, Duration) Notes Start Date End Date Status Vitamin D3 25 MCG (1000 UT) 1 cap(s) orally once a day; Duration: 30 day(s) 10/12/2021 Active Magnesium Chloride *Please revie w and pick correct strength-formulatio n from [facility] options. If intended option is not shown, discontinue and re-order from Quick Search* 10/12/2021 Active Azelastine HCl 137 MCG/SPRAY 2 spray(s) intranasally 2 times a day; Duration: 30 day(s) 10/12/2021 Active Xyzal Allergy 24HR 5 MG 1 tablet PO daily; Duration: 30 10/12/2021 Active Encounters Encounter Location Date Provider Diagnosis [facility] [place] [place] [address] 11/17/2023 Provider [facility]Migration Allergic rhinitis due to pollen J30.1 Assessments Encounter Date Diagnosis (ICD Code) Assessment Notes Treatment Notes Treatment Clinical Notes Section Notes 11/17/2023 Allergic rhinitis due to pollen (ICD-10 - J30.1) Plan Of Treatment Medication Medication Name Sig Start Date Stop Date Notes Azelastine HCl 137 MCG/SPRAY 2 spray(s) intranasally 2 times a day; Duration: 30 day(s) 10/12/2021 Xyzal Allergy 24HR 5 MG 1 tablet PO jena y; Duration: 30 10/12/2021 Progress Notes * Emily HILLOB:1975 (49 yo F)Acc No.[id number]:11/17/2023 Patient: Afshan DURAN Provider: Maurice Melo :1975 A ge:48 Y S ex:Female Date:11/17/2023 Address:[address] [place] [address] [address], [facility] Pcp:Ebony Mendez Subjective: * Chief Complaints: * 1 . [facility] Conversion Encounter. * Medical History: * Medications: T aking Vitamin D3 25 MCG (1000 UT) Capsule 1 cap(s) orally once a day , Taking Magnesium Chloride , Notes to Pharmacist: *Please review and pick correct strength-formulation from [facility] options. If intended option is not shown, discontinue and re-order from Quick Search* Objective: * Vitals: Assessment: * Assessment: 1. A llergic rhinitis due to pollen - J30.1 (Primary) Plan: * Treatment: * Billing Information: * Visit Code: * Procedure Codes: * Electronic signature of Prov ider [facility]-Migration on 01/19/2025 at 01:59 PM CDT Sign off status: Pending * Provider: Maurice Melo Date: 0 11/17/2023 Generated for Stalin ball/Cameron/Beccaitting on: 0 01/19/2025 01:59 PM CDT
--- OUTSIDE RECORDS SUMMARY | 2025-01-19 14:00 | XMS_ITS | Encounter Summary ---
Author Organization [facility] Address [address] [facility] [place] [address] Care Team Providers Care Information Systems Security Analyst Name Role Phone Unavailable Primary Care Provider Unavailabl e Encounter Details Date Type Department Care Team (Late st Contact Info) Description 11/17/2022 Lab Requisition [facility] - DermPath Lab [address] [place] [id number] Solis Lang MD [address] [facility] [address] [place] [address] Social History Tobacco Use Types Packs/Day Years Used Date Smoking Tobacco: Never Assessed Comments Unknown Sex and Gender Information Value Date Recorded Sex Assigned at Not on file 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 Gender Identity Not on file Sexual Orientation Not on file documented as of this encounter Plan of Treatment Not on file documented as of this encounter Procedures Procedure Name Priority Date/Time Associated Diagnosis Comments DERMATOPATHOLOGY Routine 11/16/2022 12:0 0 AM CDT documented in this encounter Results * DERMATOPATHOLOGY (11/16/2022 12:00 AM CDT) Case Report Dermatopathology Report Case: [id number] Authorizing Provider: Solis Lang MD Collected: 11/16/2022 12:00 AM Ordering Location: [facility] DermPath Lab Received: 11/20/2022 07:27 AM Pathologist: [...] at 1457 CDT Clinical History A: Path# [id number] B: Path# [id number] 3 2:58 PM T DERMATOPATHOLOGY LABORATORY Gross [...] characteristic determined by the Dermatopathology Laboratory at [facility], directed by Dr. Fernie Rousseau. These tests need not be, and therefore are not, approved by the [place] Food and Drug Administration. The tests are used for clinical purposes. Billing Codes Specimen Charges Stain Charges 11197 76910 1 1 3 2:58 PM CDT DERMATOPATHOLOGY LABORATORY Embedded Images 3 2:58 PM CDT DERMATOPATHOLOGY LABORATORY Pathology/Cytology TISSUE SPECIMEN FROM SKIN / Unknown 11/16/2022 11/20/2022 7:27 AM CDT Miscellaneous samples (specimen) TISSUE SPECIMEN FROM SKIN / Unknown 11/16/2022 11/20/2022 7:27 AM CDT us Solis Lang MD LAB - PATHOLOGY/CYTOLOGY ORDER PIEDAD Final Result DERMATOPATHOLOGY LABORATORY [facility] - Department of Dermatology [facility] Specialized Medicine [address] [place] [address], [address] [phone] documented in this encounter Visit Diagnoses Not on filedocumented in this encounter
--- OUTSIDE RECORDS SUMMARY | 2025-01-19 14:00 | XMS_ITS | Patient Health Record ---
Author Organization [facility] [place] ([address]) Address [address] [facility] [address] [place] [address] Care Team Providers Care Molding Associate Name Role Phone Ebony Mendez Primary Care Provider Juan Miguel Roberts Unavailable [phone] Allergies No Known Allergies Reason For Referral [...] w and pick correct strength-formulati on from [facility] options. 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 Problems Problem Type SNOMED Code ICD Code Onset Dates Problem Status W/U Status Risk Notes Problem Shortness of breath (714597026) Shortness of breath (R06.02) Active confirmed Problem Chronic allergic conjunctivitis (47840250) Other chronic allergic conjunctivitis (H10.45) Active confirmed Problem Allergic rhinitis caused by pollen (disorder) (37414466) Allergic rhinitis due to pollen (J30.1) Active confirmed Problem Allergic rhinitis (94511400) Other allergic rhinitis (J30.89) Active confirmed Problem Allergic rhinitis caused by pollen (disorder) (23330922) Allergic rhinitis due to pollen (J30.1) Active confirmed Problem Allergic rhinitis caused by animal hair and dander (713028319429238) Allergic rhinitis due to animal (cat) (dog) hair and dander (J30.81) Active confirmed Problem Food allergy (050988802) Allergy to other foods (Z91.018) Active confirmed Plan Of Treatment No Information Insurance Providers Payer Name Payer Address Payer Phone Subscriber Number Group Number Insured Name Patient Relationship to Insured Coverage Start Date Coverage End Date [facility] [employer] [address] [address] [place] [phone] [id number] Afshan Hill Self - patient is the insured Medical (General) History Medical History History ICD Code Chronic rhinitis J31.0 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
--- OUTSIDE RECORDS SUMMARY | 2025-01-19 14:00 | XMS_ITS | Encounter Summary ---
Author Organization [facility] Address [address] [facility] [place] [address] Care Team Providers Care Kosher Inspector Name Role Phone Unavailable Primary Care Provider Unavailabl e Encounter Details Date Type Department Care Team (Late st Contact Info) Description 12/16/2020 Lab Requisition [facility] DermPath Lab [address] 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 Gender Identity Not on file Sexual Orientation Not on file documented as of this encounter Plan of Treatment Not on file documented as of this encounter Procedures Procedure Name Priority Date/Time Associated Diagnosis Comments DERMATOPATHOLOGY Routine 12/14/2020 3:33 AM CDT documented in this encounter Results * DERMATOPATHOLOGY (12/14/2020 3:33 AM CDT) Case Report Dermatopathology Report Case: [id number] Authorizing Provider: Solis Lnag MD Collected: 12/14/2020 03:33 AM Ordering Location: [facility] DermPath Lab Received: 12/16/2020 06:34 AM Pathologist: Laina Najera MD Specimen: Skin, left thigh 4:44 PM CDT DERMATOPATHOLOGY LABORATORY Final Diagnosis Specimen A. SKIN, left thigh: SEBORRHEIC KERATOSIS, INFLAMED (L82.0) 1 4:44 PM CDT DERMATOPATHOLOGY LABORATORY at 1644 CDT Clinical History ISK vs SCCA. Path# [id number]. 1 4:44 PM CDT DERMATOPATHOLOGY LABORATORY Gross Description Specimen A: Received is one formalin filled container labeled with the patient's name and designated left thigh. The specimen consists of a shave biopsy measuring [id number]. Jar 0. 1 4:44 PM CDT DERMATOPATHOLOGY [...] characteristic determined by the Dermatopathology Laboratory at [facility], directed by Dr. Fernie Rousseau. These tests need not be, and therefore are not, approved by the [place] Food and Drug Administration. The tests are used for clinical purposes. Billing Codes Specimen Charges Stain Charges 39599 1 1 4:44 PM CDT DERMATOPATHOLOGY LABORATORY Embedded Images 1 4:44 PM CDT DERMATOPATHOLOGY LABORATORY Pathology/Cytolo gy TISSUE SPECIMEN FROM SKIN / Unknown 12/14/2020 3:33 AM CDT 12/16/2020 6:34 AM CDT us Solis Lang MD LAB - PATHOLOGY/CYTOLOGY ORDER PIEDAD Final Result DERMATOPATHOLOGY LABORATORY [facility] - Department of Dermatology [address], [address] [phone] documented in this encounter Visit Diagnoses Not on filedocumented in this encounter
--- OUTSIDE RECORDS SUMMARY | 2025-01-19 14:00 | XMS_ITS | Clinical Summary ---
Author Organization [facility] Address [address] [place] [address] Care Team Providers Care Director Of Events Name Role Phone Unavailable Primary Care Provider Unavailabl e Source Comments [facility],non-owned Affiliates and Associated Physician Practices is amultiple site organization consisting of ambulatory clinics and hospital sitesin [place], [place], [place] and [place]. This disclosure is being madepursuant to the Care Everywhere program and may not contain all information available regarding this patient. 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
== END 2025-01-19 13:07 | disposition home or self-care (01) ==
LOC: ANHIMG 13:07
PROVIDERS: PCP Physician Assistant; Visit Provider Obstetrics & Gynecology
DX: N63.10 Unspecified lump in the right breast, unspecified quadrant (principal)
CPT/HCPCS: 77061; 77065; G0279

== ENCOUNTER 2025-02-27 18:25 | Emergency (ER) | payer OTHER, SELFPAY ==
--- NOTE | 2025-02-27 18:32 | ED.SKABFB ---
HPI - Skin/Abscess/Foreign Bdy General Chief complaint: Skin/Abscess/Foreign Body Stated complaint: LUMP ON NECK Source: patient, RN notes reviewed and old records reviewed Mode of arrival: ambulatory Limitations: no limitations History of Present Illness HPI narrative: 49-year-old female presents to the [facility] with a red slightly raised area that is tender in the hairline posterior lateral left neck. No increased warmth, no fluctuance, no drainage. States it a started 1 hour prior to arrival approximately. Onset (ago): hour(s) (1) Treatments prior to arrival: none Related Data Home Medications ?Medication ?Instructions ?Recorded ?Confirmed ?Last Taken ?Type cholecalciferol (vitamin D3) 25 25 mcg PO DAILY 11/25/21 10/26/22 3 Days Ago History mcg (1,000 unit) tablet (Vitamin ~05/20/22 D3) levocetirizine 5 mg tablet (Xyzal) 5 mg PO DAILY 11/25/21 10/26/22 1 Day Ago History ~05/22/22 multivit with minerals-iron 18 1 tablet PO DAILY 11/25/21 10/26/22 3 Days Ago History mg-folic ac 400 mcg-vit K 25 mcg ~05/20/22 tablet (Adults Multivitamin) sertraline 25 mg tablet 25 mg PO HS 05/18/22 10/26/22 1 Day Ago History ~05/22/22 ferrous sulfate 325 mg (65 mg 325 mg PO DAILY 10/26/22 10/26/22 Unknown History iron) tablet (Iron (ferrous sulfate)) Allergies Allergy/AdvReac Type Severity Reaction Status Date / Time No Known Allergies Allergy Verified 02/27/25 18:53 Review of Systems Review of Systems: All systems reviewed & are unremarkable except as noted in HPI and below Constitutional: Constitutional: Reports no additional constitutional complaints ENT: Reports system reviewed and no additional complaints, except as documented Cardiovascular: Cardiovascular: Reports no additional cardiovascular complaints, Denies chest pain and Denies dyspnea Respiratory: Respiratory: Reports no additional respiratory complaints, Denies chest congestion, Denies cough and Denies dyspnea Musculoskeletal: Musculoskeletal: Reports no additional musculoskeletal complaints Integumentary/Breasts: Skin/Breast: Reports as per HPI [facility] Past Medical History Medical History Seizure SCC (squamous cell carcinoma) History of Mohs micrographic surgery for skin cancer Surgical History Surgical History History of delivery History of hernia repair History of brain surgery Family History Family History Father Lymphoma Other Family history of malignant neoplasm Social History Social History Smoking status: Former smoker Alcohol intake: current Drinks per week: 3 Substance use: never Substance use type: does not use Living arrangements: with family Spiritual care concerns: No Comments At the time of my signature, I reviewed and agree with the nursing past medical, surgical, social, and family history. There is no relevant family history pertinent to the patient complaint. Exam Const: General: cooperative, healthy appearing, comfortable, no acute distress, well developed, alert and well nourished Nutritional Appearance: well nourished Orientation/consciousness: patient oriented x3 Limitations: no limitations HENMT: Head: normal to inspection Ears: hearing grossly normal bilaterally, external ears normal, TM's normal bilaterally, EAC's normal, mastoids normal and no periauricular adenopathy Face/Nose/Sinus: Normal external nose present and Normal nares present Mouth: Yes Normal oral and palatal mucosa present, Yes lip normal, Yes tongue normal and Yes moist mucous membranes Eyes: General: appearance normal, both eyes and all related structures Alignment and Position: alignment normal Neck: Neck: normal visual inspection, full ROM, no lymphadenopathy and no meningeal signs Neck images:  1. 1 cm x 1 cm slightly raised without fluctuance. Reports tenderness, movable area without increased warmth. Chest: Chest palpation & inspection: normal inspection of the chest Resp: Effort & Inspection: normal respiratory effort and able to speak in complete sentences Auscultation: clear to auscultation bilaterally, no crackles, no rales, no rhonchi and no wheezes Cardio: Rate: regular rate Skin: General skin exam: normal color and no rashes or lesions noted Neuro: General: patient oriented x3, gait normal, moves all extremities and no meningeal signs Cognition (Neuro): normal cognition Speech: normal speech Gait exam (Neuro): Normal gait present Extrem: General: normal to inspection, full ROM, capillary refill normal and normal gait Psych: Appearance: grossly normal and well kempt Mental Status: mental status grossly normal Speech and movement: Normal speech and movement present and Clear speech present Affect: normal affect Attitude: cooperative Course Course Level of Care: Express Care Visit Vital Signs Vital signs: Vital Signs Temperature 98.1 F 02/27/25 18:36 Pulse Rate 80 02/27/25 18:36 Respiratory Rate 16 02/27/25 18:36 Blood Pressure 108/71 02/27/25 18:36 Pulse Oximetry 100 02/27/25 18:36 Temperature 98.1 F 02/27/25 18:36 Pulse Rate 80 02/27/25 18:36 Respiratory Rate 16 02/27/25 18:36 Blood Pressure 108/71 02/27/25 18:36 Pulse Oximetry 100 02/27/25 18:36 Reviewed MDM - Skin/Abscess/Foreign Bdy MDM Narrative Medical decision making narrative: Patient sitting in exam room. Patient is nontoxic, vitals stable. Patient presents with a pink area that was tender that started approximately 1 hour prior to arrival. No signs of infection. No signs of abscess. Concern for an ingrown hair versus insect bite VS pimple. Discussed this with patient. She verbalized understanding patient is appropriate for outpatient treatment with close follow-up Differential Diagnosis Differential diagnosis: Likely abscess of skin or subcutaneous tissue, dermatophytosis, herpes zoster, allergic reaction to drug, cellulitis, eczema, insect bites, impetigo and contact dermatitis Critical Care Time Critical Care Time Critical Care Time: No Discharge Plan Discharge Clinical Impression: Skin irritation Patient Disposition: Home Condition: Stable Additional Instructions: Wash with warm soapy water, twice daily. Try exfoliating the area. Apply bacitracin a very scant amount. Apply warm compresses every 2-3 hours for 15 minutes Follow-up with primary care provider Patient Language: Nauruan Prescriptions: No Action meclizine 50 mg tablet 50 mg PO BID PRN (Reason: dizziness) Qty: 7 0RF cholecalciferol (vitamin D3) [Vitamin D3] 25 mcg (1,000 unit) Tablet 25 mcg PO DAILY levocetirizine [Xyzal] 5 mg Tablet 5 mg PO DAILY Adults Multivitamin 18 mg iron-400 mcg-25 mcg Tablet 1 tablet PO DAILY ferrous sulfate [Iron (ferrous sulfate)] 325 mg (65 mg iron) Tablet 325 mg PO DAILY hydrocodone-acetaminophen 5-325 mg tablet 1 - 2 tablet PO Q6H PRN (Reason: pain) Qty: 30 0RF hydrocodone-acetaminophen 5-325 mg tablet 1 - 2 tablet PO Q6H PRN (Reason: pain) Qty: 30 0RF sertraline 25 mg Tablet 25 mg PO HS Follow-up/Referrals: Vanessa,BOSTON Beck [Primary Care Provider, Unknown] - 1 Week Clinical Impression: Skin irritation Time of Disposition: 18:56
[2025-02-27 18:36] VITALS: BP 108/71; PULSE 80; RESP 16; TEMP 36.7; O2SAT 100
== END 2025-02-27 19:00 | disposition home or self-care (01) ==
PROVIDERS: Emergency Provider Nurse Practitioner; PCP Physician Assistant
DX: L98.9 Disorder of the skin and subcutaneous tissue, unspecified (principal); Z87.891 Personal history of nicotine dependence; Z85.828 Personal history of other malignant neoplasm of skin
CPT/HCPCS: 99211; G0463